=== PATIENT | female | born 1960 | race Caucasian/White ===

== ENCOUNTER 2020-08-11 18:21 | Emergency (ER) | payer SELFPAY ==
[2020-08-11 18:28] VITALS: BP 189/96; PULSE 96; RESP 18; TEMP 36.6; O2SAT 97; BMI 26.1
--- NOTE | 2020-08-11 18:40 | XRR_ITS ---
PROCEDURE INFORMATION: Exam: XR Chest, 1 View Exam date and time: 08/11/2020 7:13 PM Age: 60 years old Clinical indication: Dyspnea; Additional info: Short of breath TECHNIQUE: Imaging protocol: XR of the chest Views: 1 view. COMPARISON: No relevant prior studies available. FINDINGS: Lungs: Unremarkable. No consolidation. Pleural space: Unremarkable. No pleural effusion. No pneumothorax. Heart/Mediastinum: Unremarkable. No cardiomegaly. Bones/joints: Mild levoscoliosis. XR/XR chest 1V portable [id number] IMPRESSION: No acute findings.
--- NOTE | 2020-08-11 18:52 | W.ED.SOB ---
HPI - SOB/Dyspnea General: Chief Complaint: Shortness of Breath/Dyspnea Stated Complaint: sob x few weeks/ easily tired Time Seen by Provider: 08/11/20 18:40 History of Present Illness: HPI Narrative: 60-year-old female comes in today with complaints of some shortness of breath for the last 3 weeks. Patient appears well. Patient appears in no acute distress. Patient reports that shortness of breath occurs with exertion. Patient denies any chest pain or chest discomfort. Patient does report occasional swelling in the lower extremities. Review of Systems General: Reports: 10 or more systems reviewed and unremarkable except in HPI and below Resp: Reports: dyspnea Physical Exam Const: COMMON NORMALS: no acute distress and patient oriented x3 GENERAL APPEARANCE: cooperative HENMT: COMMON NORMALS: normocephalic and Normal external nose present HEAD & SCALP: normal to inspection and normocephalic NOSE: Normal external nose present MOUTH: Normal oral and palatal mucosa present Eye: GENERAL EYE: appearance normal, both eyes and all related structures Neck/C-Spine: COMMON NORMALS: full ROM Lymph: LYMPHATIC: no lymphadenopathy noted Chest: COMMONS NORMALS: normal inspection of the chest Resp: COMMON NORMALS: normal respiratory effort EFFORT & INSPECTION: Yes able to speak in complete sentences Cardio: COMMON NORMALS: regular rate and regular rhythm RATE: regular rate RHYTHM: regular rhythm GI: COMMON NORMALS: non-tender Back/Pelvis: COMMON NORMALS: thoracic and lumbar spine normal to inspection Extremity: COMMON NORMALS: normal to inspection Neuro: COMMON NORMALS: patient oriented x3 and moves all extremities Psych: COMMON NORMALS: mental status grossly normal and cooperative Skin: COMMON NORMALS: no rashes or lesions noted GENERAL SKIN EXAM: no rashes or lesions noted Course Vital Signs: Vital signs: Vital Signs Temperature 97.9 F 08/11/20 18:28 Pulse Rate 84 08/11/20 19:03 Respiratory Rate 17 08/11/20 19:03 Blood Pressure 163/97 08/11/20 19:03 Pulse Oximetry 97 08/11/20 19:03 MDM - SOB/Dyspnea MDM Narrative: Medical decision making narrative: Well-appearing adult female comes in today for concerns of some occasional shortness of breath. Patient is very nonspecific in her symptoms. Patient appears well. Respirations are even lungs are clear to auscultation. Skin is warm and dry color is pink. No edema is noted in the extremities. Heart rates regular. Differential diagnosis includes but not limited to asthma, pulmonary fibrosis, ACS, CHF, pneumonia. Chest x-ray did not show any signs of pneumonia. CBC CMP were unremarkable. BNP and troponin were negative. EKG was normal sinus rhythm. Reviewed exam with patient with recommendations for treatment and follow-up. Recommended follow-up with primary care regarding high blood pressure. Also discussed may be possibility of seeing a vice president safety for further lung evaluation. Patient reported understanding and agreed to plan. Lab Data: Labs: Lab Results 08/11/20 08/11/20 08/11/20 Range/Units 19:24 19:24 19:24 WBC 9.6 (4.0-10.0) 10^3/ uL RBC 4.37 (4.1-5.3) 10^6/u L Hgb 12.7 (11.5-15.3) g/dL Hct 40.0 (37.0-47.0) % MCV 91.5 (81-99) fL MCH 29.1 (28.0-34.0) pg MCHC 31.8 (30.0-36.0) g/dL RDW 14.2 (12.1-15.1) % Plt Count 315 (130-400) 10^3/c mm MPV 10.9 H (7.4-10.4) fL Neut % (Auto) 56.3 % Lymph % (Auto) 29.6 % [place] % (Auto) 8.6 % Eos % (Auto) 4.3 % Baso % (Auto) 0.9 % Neut # (Auto) 5.39 (1.8-7.7) 10^3/u L Lymph # (Auto) 2.8 (0.8-4.8) 10^3/u L [place] # (Auto) 0.8 (0.2-0.9) 10^3/u L Eos # (Auto) 0.4 (0.0-0.8) 10^3/u L Baso # (Auto) 0.1 (0.0-0.1) 10^3/u L Nucleated RBC % (a uto) 0 % Nucleated RBCs # 0.0 /100WBC Sodium 140 (136-145) mmol/L Potassium 4.0 (3.5-5.1) mmol/L Chloride 102 (98-107) mmol/L Carbon Dioxide 29 (22-29) mmol/L Anion Gap 13.0 (5-19) BUN 20 (8-23) mg/dL Creatinine 1.0 H (0.5-0.9) mg/dL GFR Calculation 56.4 L (90-130) mL/min Glucose 107 (65-115) mg/dL Calculated Osmolal ity 293 (285-295) mOsm/k g Calcium 10.1 (8.5-10.5) mg/dL Total Bilirubin 0.3 (0.15-1.2) mg/dL AST 18 (0-32) U/L ALT 18 (0-33) U/L Alkaline Phosphata se 72 (35-105) IU/L Troponin T Baselin e 6 (0-10) ng/L NT-Pro-B Natriuret Pep 53 (0-125) pg/mL Total Protein 7.7 (6.6-8.7) g/dL Albumin 4.7 (3.5-5.2) g/dL Globulin 3.0 (1.3-4.6) g/dL EKG Data^: EKG 1: Attestation: I personally reviewed and interpreted this EKG as follows: (1850, NSR 87bpm regular, no ectopy, no ST elevation.) Discharge Plan Discharge Patient Disposition: Home Clinical Impression: Dyspnea, unspecified Qualifiers: Dyspnea type: shortness of breath Qualified Code(s): R06.02 - Shortness of breath Condition: Stable Discharge Orders: Discharge Order (Routine); Ordered 08/11/20 Ordered By: Cedric Mariano Discharge Diet: Usual diet Discharge Activity: Increase activity as tolerated Activity Restrictions/Additional Instructions: Home and rest. Continue with routine care. Follow-up with primary care for recheck on your blood pressure. You may consider follow-up with pulmonology for further evaluation of your shortness of breath. Coding Level of Care Code ED Supervisor Covering And Lining for Chg Fwd Exam Comprehensive
[2020-08-11 19:03] VITALS: BP 163/97; PULSE 84; RESP 17; O2SAT 97
[2020-08-11 19:40] LABS: Basophils # 0.1 10^3/uL (0.0-0.1); Basophils % 0.9 %; Eosinophils # 0.4 10^3/uL (0.0-0.8); Eosinophils % 4.3 %; Hemoglobin 12.7 g/dL (11.5-15.3); Lymphocytes # 2.8 10^3/uL (0.8-4.8); Lymphocytes % 29.6 %; Mean Corpuscular HGB Conc 31.8 g/dL (30.0-36.0); Mean Corpuscular Hemoglobin 29.1 pg (28.0-34.0); Mean Corpuscular Volume 91.5 fL (81-99); Mean Platelet Volume 10.9 fL (7.4-10.4); Monocytes # 0.8 10^3/uL (0.2-0.9); Monocytes % 8.6 %; Neutrophils # 5.39 10^3/uL (1.8-7.7); Neutrophils % 56.3 %; Nucleated Red Blood Cells % 0 %; Platelet Count 315 10^3/cmm (130-400); Red Blood Count 4.37 10^6/uL (4.1-5.3); Red Cell Distribution Width 14.2 % (12.1-15.1); White Blood Count 9.6 10^3/uL (4.0-10.0)
[2020-08-11 20:01] LABS: Troponin(5th) Baseline 6 ng/L (0-10)
[2020-08-11 20:08] LABS: Alanine Aminotransferase 18 U/L (0-33); Albumin Level 4.7 g/dL (3.5-5.2); Alkaline Phosphatase 72 IU/L (35-105); Aspartate Amino Transferase 18 U/L (0-32); Blood Urea Nitrogen 20 mg/dL (8-23); Calcium 10.1 mg/dL (8.5-10.5); Carbon Dioxide 29 mmol/L (22-29); Chloride 102 mmol/L (98-107); Glomerular Filtration Rate 56.4 mL/min (90-130); Glucose 107 mg/dL (65-115); NT Pro B Type Natriuretic Pept 53 pg/mL (0-125); Osmolality Calculated 293 mOsm/kg (285-295); Sodium 140 mmol/L (136-145); Total Bilirubin 0.3 mg/dL (0.15-1.2); Total Protein 7.7 g/dL (6.6-8.7)
[2020-08-11 20:49] VITALS: BP 152/93; PULSE 83; RESP 17; TEMP 36.6; O2SAT 97
== END 2020-08-11 20:49 | disposition home or self-care (01) ==
PROVIDERS: Emergency Provider Nurse Practitioner Family
DX: R06.02 Shortness of breath (principal)
CPT/HCPCS: 12345; 71045; 80053; 83880; 84484; 85025; 99283

== ENCOUNTER 2020-08-17 09:51 | Observation (INO) | payer SELFPAY ==
[2020-08-17] VITALS (59 sets, daily range): BP systolic 113–163; BP diastolic 64–138; PULSE 71–99; RESP 12–32; TEMP 36.3–36.6; O2SAT 92–98; BMI 28.3
--- NOTE | 2020-08-17 09:53 | XR_ITS ---
WS: [id number] Portable AP upright chest, 08/17/2020 Clinical Data: dyspnea/cough Comparison: Portable chest, 08/11/2020 Findings: No nodules, masses or effusions are seen. The heart is normal. The pulmonary vascularity is not increased. No pneumonia or pneumothorax is seen. The aortic arch and descending aorta show tortu osity. Monitor leads are on the upper abdomen. XR/XR chest 1V portable [id number] Impression: Atherosclerosis.
--- NOTE | 2020-08-17 10:01 | ECG_ITS ---
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 Measurements Intervals [place] Rate: 97 P: 48 [place]: 163 QRS: 37 QRSD: 81 T: 27 QT: 360 QTc: 459 Interpretive Statements SINUS RHYTHM No previous ECG available for comparison Electronically Signed On 08-17-2020 19:57:24 CARPET BINDER by Zuhair Orellana M.D. [id number] f
--- NOTE | 2020-08-17 10:03 | ED_ITS ---
HPI - Arrhythmia/Palpitations General: Chief Complaint: Arrhythmia/Palpitations Stated Complaint: sob/ lightheaded/ dizzy/ near syncopal Time Seen by Provider: 08/17/20 09:52 History of Present Illness: HPI narrative: 60-year-old female brought in by EMS. In the field she had SVT this was captured on the monitor strip. She converted by Valsalva maneuver it was self-induced as they were starting the IV She does admit to drinking a lot of energy drinks lately, additionally this morning she evidently was stressed there was a water leak in the basement of her rental unit and she had a confrontation with the water plant maintenance mechanic. She denies previously having any SVT denies any chest pain just felt weak lightheaded and dizzy with a rapid heart rate she sat down and EMS was called. It resolved now and she is symptom-free at this time. He has no known history of diabetes hypertension or coronary artery disease. MD complaint: rapid heart beat and heart racing Onset (ago): minute(s) Duration: now resolved Severity: severe Context: occurred during exertion Associated symptoms: Reports anxiety, pre-syncope, sense of impending doom and short of breath; Deny cough, diaphoresis, muscle cramps, nausea, paresthesias, syncope or vomiti ng Treatments prior to arrival: vagal maneuvers Review of Systems Const: Denies: diaphoresis ENMT: Denies: throat pain, ear or mastoid pain, nasal discharge or nasal congestion Card: Reports: pre-syncope; Denies: syncope Resp: Denies: dyspnea, productive cough or non-productive cough GI: Denies: nausea or vomiting : Denies: flank pain, difficulty voiding, dysuria, urinary frequency or urinary urgency Musc: Denies: muscle cramps Skin/Breast: Denies: rash or pruritus Psych: Reports: anxiety PFSH ED PFSH: Family History Other Diabetes Hypertension Psychiatric illness Denies family history of CAD (coronary artery disease) Bleeding disorder Family history of premature coronary artery disease Stroke Physical Exam Const: COMMON NORMALS: no acute distress GENERAL APPEARANCE: cooperative and comfortable ORIENTATION/CONSCIOUSNESS: Yes awake, Yes oriented to person, Yes oriented to place and Yes oriented to time HENMT: COMMON NORMALS: normocephalic, atraumatic and hearing grossly normal bilaterally HEAD & SCALP: normocephalic and atraumatic Eye: COMMON NORMALS: Equal, round and reactive pupils present, EOMs intact bilaterally, conjunctivae normal and no scleral icterus CONJUNCTIVA: Yes conjunctivae normal PUPIL: Yes Equal, round and reactive pupils present Neck/C-Spine: COMMON NORMALS: full ROM, no lymphadenopathy, supple and no JVD Lymph: LYMPHATIC: no lymphadenopathy noted and no lymphedema noted Resp: COMMON NORMALS: normal respiratory effort, No retractions, No use of accessory muscles and clear to auscultation bilaterally AUSCULTATION: clear to auscultation bilaterally Cardio: COMMON NORMALS: no JVD, regular rate, regular rhythm and No murmurs present (Cardio) RATE: regular rate RHYTHM: regular rhythm GI: COMMON NORMALS: Soft to palpation and No hepatosplenomegaly present AUSCULTATION: Yes normoactive bowel sounds PALPATION: Yes Soft to palpation, No Tenderness to palpation present (GI), No Guarding due to palpation present (GI) and Yes No hepatosplenomegaly present Extremity: COMMON NORMALS: normal to inspection, capillary refill normal, no clubbing, cyanosis or edema, no calf tenderness and no pedal edema Neuro: SENSORIUM/ORIENTATION: Yes oriented to person, Yes oriented to place and Yes oriented to time Skin: COMMON NORMALS: no rashes or lesions noted GENERAL SKIN EXAM: no rashes or lesions noted Course Vital Signs: Vital signs: Vital Signs Temperature 98.1 F 08/18/20 10:18 Pulse Rate 73 08/18/20 10:18 Respiratory Rate 20 H 08/18/20 10:18 Blood Pressure 116/64 08/18/20 10:18 Pulse Oximetry 96 08/18/20 10:18 MDM - Arrhythmia/Palpitations MDM Narrative: Medical decision making narrative: Patient converted outside of the hospital however opponent is significantly elevated discussed Dr. Cross will admit to cardiology service for further evaluation Lab Data: Labs: Lab Results 08/17/20 08/17/20 08/17/20 Range/Units 10:00 10:00 10:00 WBC 10.8 H (4.0-10.0) 10^3/ uL RBC 4.50 (4.1-5.3) 10^6/u L Hgb 12.8 (11.5-15.3) g/dL Hct 40.4 (37.0-47.0) % MCV 89.8 (81-99) fL MCH 28.4 (28.0-34.0) pg MCHC 31.7 (30.0-36.0) g/dL RDW 14.5 (12.1-15.1) % Plt Count 370 (130-400) 10^3/c mm MPV 11.3 H (7.4-10.4) fL Neut % (Auto) 66.7 % Lymph % (Auto) 22.9 % [place] % (Auto) 6.3 % Eos % (Auto) 3.2 % Baso % (Auto) 0.7 % Neut # (Auto) 7.20 (1.8-7.7) 10^3/u L Lymph # (Auto) 2.5 (0.8-4.8) 10^3/u L [place] # (Auto) 0.7 (0.2-0.9) 10^3/u L Eos # (Auto) 0.4 (0.0-0.8) 10^3/u L Baso # (Auto) 0.1 (0.0-0.1) 10^3/u L Nucleated RBC % (a uto) 0 % Nucleated RBCs # 0.0 /100WBC Sodium 138 (136-145) mmol/L Potassium 3.7 (3.5-5.1) mmol/L Chloride 103 (98-107) mmol/L Carbon Dioxide 18 L (22-29) mmol/L Anion Gap 20.7 H (5-19) BUN 23 (8-23) mg/dL Creatinine 1.2 H (0.5-0.9) mg/dL GFR Calculation 45.7 L (90-130) mL/min Glucose 216 H (65-115) mg/dL Estimat Average Gl ucose Hemoglobin A1c (4.0-6.0) % Calculated Osmolal ity 296 H (285-295) mOsm/k g Calcium 9.5 (8.5-10.5) mg/dL Total Bilirubin 0.2 (0.15-1.2) mg/dL AST 28 (0-32) U/L ALT 29 (0-33) U/L Alkaline Phosphata se 72 (35-105) IU/L Troponin T Baselin e 17 H (0-10) ng/L Troponin T 120 Min [place] (0-10) ng/L Delta Troponin T (0-10) ABS# Total Protein 7.4 (6.6-8.7) g/dL Albumin 4.4 (3.5-5.2) g/dL Globulin 3.0 (1.3-4.6) g/dL Triglycerides (0-150) mg/dL Cholesterol (0-200) mg/dL LDL Cholesterol, C alc (50-129) mg/dL HDL Cholesterol (60-100) mg/dL LDL/HDL Ratio (0.00-3.22) RATI O Cholesterol/HDL Ra karey (0.0-4.40) mg/dL TSH 1.84 (0.27-4.20) uIU/ mL Free T4 1.16 (0.82-1.77) ng/d L 08/17/20 08/17/20 08/17/20 Range/Units 10:00 10:00 12:17 WBC (4.0-10.0) 10^3/ uL RBC (4.1-5.3) 10^6/u L Hgb (11.5-15.3) g/dL Hct (37.0-47.0) % MCV (81-99) fL MCH (28.0-34.0) pg MCHC (30.0-36.0) g/dL RDW (12.1-15.1) % Plt Count (130-400) 10^3/c mm MPV (7.4-10.4) fL Neut % (Auto) % Lymph % (Auto) % [place] % (Auto) % Eos % (Auto) % Baso % (Auto) % Neut # (Auto) (1.8-7.7) 10^3/u L Lymph # (Auto) (0.8-4.8) 10^3/u L [place] # (Auto) (0.2-0.9) 10^3/u L Eos # (Auto) (0.0-0.8) 10^3/u L Baso # (Auto) (0.0-0.1) 10^3/u L Nucleated RBC % (a uto) % Nucleated RBCs # /100WBC Sodium (136-145) mmol/L Potassium (3.5-5.1) mmol/L Chloride (98-107) mmol/L Carbon Dioxide (22-29) mmol/L Anion Gap (5-19) BUN (8-23) mg/dL Creatinine (0.5-0.9) mg/dL GFR Calculation (90-130) mL/min Glucose (65-115) mg/dL Estimat Average Gl ucose 114 Hemoglobin A1c 5.6 (4.0-6.0) % Calculated Osmolal ity (285-295) mOsm/k g Calcium (8.5-10.5) mg/dL Total Bilirubin (0.15-1.2) mg/dL AST (0-32) U/L ALT (0-33) U/L Alkaline Phosphata se (35-105) IU/L Troponin T Baselin e (0-10) ng/L Troponin T 120 Min [place] 49.68 H (0-10) ng/L Delta Troponin T 32.68 H* (0-10) ABS# Total Protein (6.6-8.7) g/dL Albumin (3.5-5.2) g/dL Globulin (1.3-4.6) g/dL Triglycerides 150 (0-150) mg/dL Cholesterol 218 H (0-200) mg/dL LDL Cholesterol, C alc 97 (50-129) mg/dL HDL Cholesterol 91 (60-100) mg/dL LDL/HDL Ratio 1.07 (0.00-3.22) RATI O Cholesterol/HDL Ra karey 2.40 (0.0-4.40) mg/dL TSH (0.27-4.20) uIU/ mL Free T4 (0.82-1.77) ng/d L Discharge Plan Discharge Patient Disposition: Admitted As Inpatient Admit Provider: Cliff Cross Clinical Impression: Supraventricular tachycardia, Elevated troponin, Exertional dyspnea Condition: Stable Coding Level of Care Code ED Stamping Machine Operator for Sarita Holman
[2020-08-17 10:23] LABS: Basophils # 0.1 10^3/uL (0.0-0.1); Basophils % 0.7 %; Eosinophils # 0.4 10^3/uL (0.0-0.8); Eosinophils % 3.2 %; Hematocrit 40.4 % (37.0-47.0); Hemoglobin 12.8 g/dL (11.5-15.3); Lymphocytes # 2.5 10^3/uL (0.8-4.8); Lymphocytes % 22.9 %; Mean Corpuscular HGB Conc 31.7 g/dL (30.0-36.0); Mean Corpuscular Hemoglobin 28.4 pg (28.0-34.0); Mean Corpuscular Volume 89.8 fL (81-99); Mean Platelet Volume 11.3 fL (7.4-10.4); Monocytes # 0.7 10^3/uL (0.2-0.9); Monocytes % 6.3 %; Neutrophils % 66.7 %; Nucleated Red Blood Cells % 0 %; Platelet Count 370 10^3/cmm (130-400); Red Cell Distribution Width 14.5 % (12.1-15.1); White Blood Count 10.8 10^3/uL (4.0-10.0)
[2020-08-17 10:47] LABS: Troponin(5th) Baseline 17 ng/L (0-10)
[2020-08-17 10:55] LABS: Alanine Aminotransferase 29 U/L (0-33); Albumin Level 4.4 g/dL (3.5-5.2); Alkaline Phosphatase 72 IU/L (35-105); Anion Gap 20.7 (5-19); Aspartate Amino Transferase 28 U/L (0-32); Blood Urea Nitrogen 23 mg/dL (8-23); Calcium 9.5 mg/dL (8.5-10.5); Carbon Dioxide 18 mmol/L (22-29); Chloride 103 mmol/L (98-107); Glomerular Filtration Rate 45.7 mL/min (90-130); Glucose 216 mg/dL (65-115); Osmolality Calculated 296 mOsm/kg (285-295); Potassium 3.7 mmol/L (3.5-5.1); Sodium 138 mmol/L (136-145); Thyroid Stimulating Hormone 1.84 uIU/mL (0.27-4.20); Total Bilirubin 0.2 mg/dL (0.15-1.2); Total Protein 7.4 g/dL (6.6-8.7)
[2020-08-17] MEDS: metoprolol succinate ER (24 HR) 25 mg Tablet 12.5 MG PO (11:49)
--- NOTE | 2020-08-17 12:01 | ECG_ITS ---
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 Measurements Intervals [place] Rate: 82 P: 43 [place]: 168 QRS: 46 QRSD: 82 T: 28 QT: 373 QTc: 436 Interpretive Statements SINUS RHYTHM No previous ECG available for comparison Electronically Signed On 08-17-2020 20:17:29 STOCK SAW OPERATOR by Zuhair Orellana M.D. [id number]
[2020-08-17 13:12] LABS: Free T4 Free Thyroxine 1.16 ng/dL (0.82-1.77)
[2020-08-17 13:16] LABS: Troponin 5 2HR 49.68 ng/L (0-10)
[2020-08-17 13:34] LABS: Troponin 5 2HR Delta 32.68 ABS# (0-10)
[2020-08-17] MEDS: enoxaparin 80 mg/0.8 mL Syringe 70 MG SUBCUT (14:12)
[2020-08-17] MEDS: nitroglycerin 1 gm/inch oint Pkt 0.5 INCH TOPICAL (14:13)
--- NOTE | 2020-08-17 16:01 | ECG_ITS ---
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 Measurements Intervals [place] Rate: 80 P: 9 [place]: 163 QRS: 41 QRSD: 75 T: 28 QT: 378 QTc: 438 Interpretive Statements SINUS RHYTHM Compared to ECG 08/17/2020 13:34:13 No significant changes Electronically Signed On 08-17-2020 20:17:09 NUT TIGHTENER by Zuhair Orellana M.D. [id number]
[2020-08-17 16:08] LABS: Troponin 5 6HR 50.36 ng/L (0-10)
[2020-08-17 16:10] LABS: Troponin 5 6HR Delta 33.36 ng/L (0-12)
--- NOTE | 2020-08-17 16:25 | USCV_ITS ---
Mile Alonzo Age: 60 Gender: F : 1960 Exam Date: 08/17/2020 16:27 Ordering Phys: Jimbo De Los Santos DO Technologist: Erin Mobley Exam Location: [facility] [place] Indication: ELEVATED TROP BP: 98 / 60 HR: 79 Rhythm: Sinus Technical Quality: Fair MEASUREMENTS (Male / Female) Normal Values 2D ECHO LV Diastolic Diameter PLAX 4.3 cm 4.2 - 5.9 / 3.9 - 5.3 cm LV Systolic Diameter PLAX 3.0 cm LV Chamber Size 2.7 cm IVS Diastolic Thickness 0.9 cm 0.6 - 1.0 / 0.6 - 0.9 cm IVS Systolic Thickness 1.5 cm LVPW Diastolic Thickness 1.1 cm 0.6 - 1.0 / 0.6 - 0.9 cm LVPW Systolic Thickness 1.0 cm RV Chamber Size 2.6 cm LVOT Diameter 2.0 cm LV Ejection Fraction 2D Teich 58.4 % LV Ejection Fraction MOD 2C 60.2 % LV Ejection Fraction 2C AL 61.8 % LA Diameter 2.5 cm LA Width 2.9 cm LA Height 4.2 cm RA Width 3.4 cm RA Height 3.6 cm Aorta at Sinotubular Diameter 3.0 cm M-MODE LV Diastolic Diameter MM 3.9 cm 4.2 - 5.9 / 3.9 - 5.3 cm LV Systolic Diameter MM 2.6 cm LV Ejection Fraction MM Teich 63.9 % IVS Diastolic Thickness MM 0.9 cm 0.6 - 1.0 / 0.6 - 0.9 cm IVS Systolic Thickness MM 1.3 cm LVPW Diastolic Thickness MM 1.3 cm 0.6 - 1.0 / 0.6 - 0.9 cm LVPW Systolic Thickness MM 1.6 cm RV Diastolic Diameter MM 1.3 cm Aortic Annulus Diameter 3.0 cm LA Ao Ratio MM 0.8 MV E Point Septal Separation 0.3 cm DOPPLER AV Peak Velocity 129.0 cm/s LVOT Peak Velocity 94.0 cm/s AV Area Cont Eq vti 2.5 cm squared AV Area Cont Eq pk 2.3 cm squared MV Area PHT 3.1 cm squared Mitral E to A Ratio 1.3 MV E' Velocity 80.0 cm/s TR Peak Velocity 247.3 cm/s TR Peak Gradient 24.5 mmHg TR Mean Velocity 175.1 cm/s TR Mean Gradient 14.3 mmHg TR Velocity Time Integral 69.7 cm TV Peak E Velocity 56.0 cm/s Right Atrial Pressure 3.0 mmHg Pulmonary Artery Systolic Pressu 27.5 mmHg PV Peak Velocity 68.0 cm/s RV Acceleration Time 0.1 s RV Ejection Time 0.4 s RV AcT/ET 0.4 FINDINGS Left Ventricle Normal left ventricular size and systolic function, EF 61 %. No regional wall motion abnormalities. Right Ventricle The right ventricle is normal in size and function. Right Atrium The right atrium is normal in size. Left Atrium The left atrium is normal in size. Mitral Valve Structurally normal mitral valve without significant stenosis or prolapse. There is no mitral regurgitation. Aortic Valve Structurally normal aortic valve without significant sclerosis or stenosis. There is no aortic regurgitation. Tricuspid Valve Structurally normal tricuspid valve without significant stenosis or regurgitation. Pulmonary artery systolic pressure is normal. Pulmonic Valve No gross abnormalities noted Pericardium Normal pericardium without effusion. Aorta Normal ascending aorta dimension. CONCLUSIONS Normal left ventricular size and systolic function, EF 61 %. No regional wall motion abnormalities. Normal cardiac chamber sizes. No significant valve abnormalities. There is no pericardial effusion. There are no intracardiac masses. There are no prior echocardiogram studies to compare. Dr Cliff Cross MD FACC (Electronically Signed) Final Date: 17 August 2020 18:01 S
--- NOTE | 2020-08-17 16:30 | PC.NURSE ---
From ER A, Ox4. Denies any pain or SOB or dizziness. Oriented pt to staff. call light within reach.
[2020-08-17] MEDS: sodium chloride 0.9% 1,000 ML 100 ML IV (17:19)
[2020-08-17] MEDS: acetaminophen 325 mg Tablet 650 MG PO (17:44)
[2020-08-17 17:47] LABS: Estmated Average Glucose 114; Hemoglobin A1C 5.6 % (4.0-6.0)
[2020-08-17] MEDS: ondansetron 2 mg/ML SDV 2 mL 4 MG IVP (17:56)
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
[2020-08-17 20:29] LABS: Cholesterol 218 mg/dL (0-200); HDL Cholesterol 91 mg/dL (60-100); LDL Cholesterol Calculated 97 mg/dL (50-129); LDL HDL Ratio 1.07 RATIO (0.00-3.22); Triglycerides 150 mg/dL (0-150)
[2020-08-17] MEDS: aspirin 81 mg EC Tablet 162 MG PO (20:29)
[2020-08-17] MEDS: metoprolol tartrate 25 mg Tablet 12.5 MG PO (20:29)
[2020-08-18] VITALS: BP 102/58; PULSE 78; RESP 15; TEMP 36.6; O2SAT 93
[2020-08-18] MEDS: sodium chloride 0.9% 1,000 ML 100 ML IV (03:01)
[2020-08-18 03:25] VITALS: BP 116/60; PULSE 70; RESP 17; TEMP 36.7; O2SAT 94
[2020-08-18 04:56] LABS: Basophils # 0.1 10^3/uL (0.0-0.1); Basophils % 0.8 %; Eosinophils # 0.4 10^3/uL (0.0-0.8); Eosinophils % 5.6 %; Hemoglobin 11.7 g/dL (11.5-15.3); Lymphocytes # 2.2 10^3/uL (0.8-4.8); Lymphocytes % 29.7 %; Mean Corpuscular HGB Conc 30.8 g/dL (30.0-36.0); Mean Corpuscular Volume 94.1 fL (81-99); Mean Platelet Volume 10.7 fL (7.4-10.4); Monocytes # 0.7 10^3/uL (0.2-0.9); Monocytes % 10.1 %; Neutrophils # 3.94 10^3/uL (1.8-7.7); Neutrophils % 53.5 %; Nucleated Red Blood Cells % 0 %; Platelet Count 279 10^3/cmm (130-400); Red Blood Count 4.04 10^6/uL (4.1-5.3); Red Cell Distribution Width 14.9 % (12.1-15.1); White Blood Count 7.4 10^3/uL (4.0-10.0)
--- NOTE | 2020-08-18 05:33 | PC.NURSE ---
PT RESTING IN BED. PT DENIES PAIN. WILL CONTINUE TO MONITOR.
[2020-08-18 05:48] LABS: Alanine Aminotransferase 23 U/L (0-33); Albumin Level 3.8 g/dL (3.5-5.2); Alkaline Phosphatase 55 IU/L (35-105); Aspartate Amino Transferase 24 U/L (0-32); Blood Urea Nitrogen 18 mg/dL (8-23); Calcium 8.6 mg/dL (8.5-10.5); Carbon Dioxide 21 mmol/L (22-29); Chloride 110 mmol/L (98-107); Globulin 2.6 g/dL (1.3-4.6); Glomerular Filtration Rate 63.7 mL/min (90-130); Glucose 124 mg/dL (65-115); Osmolality Calculated 295 mOsm/kg (285-295); Sodium 141 mmol/L (136-145); Total Bilirubin 0.3 mg/dL (0.15-1.2); Total Protein 6.4 g/dL (6.6-8.7)
[2020-08-18 08:00] VITALS: BP 131/75; PULSE 81; RESP 24; TEMP 36.9; O2SAT 96
[2020-08-18] MEDS: aspirin 81 mg EC Tablet 162 MG PO (09:01)
[2020-08-18] MEDS: famotidine 20 mg Tablet PO (09:02)
[2020-08-18] MEDS: metoprolol tartrate 25 mg Tablet 12.5 MG PO ×2 (09:02→09:26)
--- NOTE | 2020-08-18 09:15 | PM.DCS ---
Discharge Providers Date of Admission: 08/17/20 15:04 Date of Discharge: August 18, 2020 Attending Provider at Admission: Cliff Cross MD Attending Provider at Discharge: Cliff Cross MD Diagnoses at Discharge Discharge Diagnosis (1) Elevated troponin: Status: Acute Permanent problem details: Patient had a 6-hour delta of 33.36. However she did not have any significant chest pain. (2) Supraventricular tachycardia: Status: Acute Permanent problem details: Patient was found to have a heart rate in the 170s by the EMS. She is spontaneously converted. I did not have any rhythm strip to evaluate the arrhythmia. (3) Exertional dyspnea: Status: Acute Permanent problem details: Patient has been complaining of shortness of breath with activities for the last more than a month. Etiology is not clear. Coronary ischemia is a consideration. Reason for Visit Reason for Visit: sob/ lightheaded/ dizzy/ near syncopal Hospital Course Hospital Course Patient was started on IV heparin because of the elevated troponin T, arrhythmia and elevated creatinine. She has not had any recurrence of arrhythmia or any chest pain during the hospital stay. Her repeat creatinine was 0.9. She remained stable throughout the hospital course. Her echocardiogram was unremarkable. Her EKG did not reveal any ischemic changes. Because of her shortness of breath and the elevated troponin T, possibility of coronary ischemia causing these was considered. For further evaluation of her coronary status, an outpatient exercise/sestamibi/sestamibi stress test was thought to be appropriate. Since he is remaining stable with no recurrence of arrhythmia or any other specific symptoms, it was thought to be appropriate to discharge home today. Patient advised to call us back or come back to the hospital with a recurrence of any palpitation or any new symptoms. Physical Exam Narrative: EXAM NARRATIVE: GENERAL: The patient is alert and oriented times three. Not in any acute distress. HEENT: No significant pallor, icterus or lymphadenopathy.Oral cavity: There are no mucous membrane lesions. NECK: Trachea appears to be central. No masses noted. No JVD or thyromegaly appreciated. RESPIRATORY: Chest is symmetrical. No intercostals muscle retraction or any accessory muscle activation. There is no chest wall tenderness. Breath sounds are heard bilaterally. No rales or rhonchi heard. No evidence of any consolidation. BREASTS: Deferred. HEART: The heart sounds are normal. No S3 or S4. No significant murmurs. No pericardial rub ABDOMEN: No vessel pulsations or distention. No tenderness. No organomegaly appreciated. Bowel sounds are normally heard. : Deferred. RECTAL: Deferred. LYMPHATIC: No lymphadenopathy noted in the neck or groin. EXTREMITIES: No edema or cyanosis. No clubbing. Peripheral pulses are palpated in fairly good volume and amplitude MUSCULOSKELETAL: No acute joint deformities or swelling SKIN: There are no significant rashes or ecchymosis NEUROPSYCHIATRIC: The patient is alert and oriented x3. Appears to be in a good mood. No tremors or rigidity noted. Discharge Data Data Completed and Pending: Completed Studies During Hospitalization Category Date Time Status XR chest 1V luis ble [id number] Stat Exams 08/17/20 09:53 Completed CV echo complete* [id number] Urgent Ultrasound 08/17/20 16:25 Completed Labs from last 24 hours 08/18/20 08/18/20 08/17/20 04:38 04:38 15:44 WBC 7.4 RBC 4.04 L Hgb 11.7 Hct 38.0 MCV 94.1 MCH 29.0 MCHC 30.8 RDW 14.9 Plt Count 279 MPV 10.7 H Neut % (Auto) 53.5 Lymph % (Auto) 29.7 [place] % (Auto) 10.1 Eos % (Auto) 5.6 Baso % (Auto) 0.8 Neut # (Auto) 3.94 Lymph # (Auto) 2.2 [place] # (Auto) 0.7 Eos # (Auto) 0.4 Baso # (Auto) 0.1 Nucleated RBC % (a uto) 0 Nucleated RBCs # 0.0 Sodium 141 Potassium 4.0 Chloride 110 H Carbon Dioxide 21 L Anion Gap 14.0 BUN 18 Creatinine 0.9 GFR Calculation 63.7 L Glucose 124 H Estimat Average Gl ucose Hemoglobin A1c Calculated Osmolal ity 295 Calcium 8.6 Total Bilirubin 0.3 AST 24 ALT 23 Alkaline Phosphata se 55 Troponin T Baselin e Troponin T 120 Min [place] Delta Troponin T Troponin T Hi Sens 6Hr 50.36 H Troponin T Hi Sens 6Hr Delta 33.36 H* Total Protein 6.4 L Albumin 3.8 Globulin 2.6 Triglycerides Cholesterol LDL Cholesterol, C alc HDL Cholesterol LDL/HDL Ratio Cholesterol/HDL Ra karey TSH Free T4 08/17/20 08/17/20 08/17/20 12:17 10:00 10:00 WBC RBC Hgb Hct MCV MCH MCHC RDW Plt Count MPV Neut % (Auto) Lymph % (Auto) [place] % (Auto) Eos % (Auto) Baso % (Auto) Neut # (Auto) Lymph # (Auto) [place] # (Auto) Eos # (Auto) Baso # (Auto) Nucleated RBC % (a uto) Nucleated RBCs # Sodium Potassium Chloride Carbon Dioxide Anion Gap BUN Creatinine GFR Calculation Glucose Estimat Average Gl ucose 114 Hemoglobin A1c 5.6 Calculated Osmolal ity Calcium Total Bilirubin AST ALT Alkaline Phosphata se Troponin T Baselin e Troponin T 120 Min [place] 49.68 H Delta Troponin T 32.68 H* Troponin T Hi Sens 6Hr Troponin T Hi Sens 6Hr Delta Total Protein Albumin Globulin Triglycerides 150 Cholesterol 218 H LDL Cholesterol, C alc 97 HDL Cholesterol 91 LDL/HDL Ratio 1.07 Cholesterol/HDL Ra karey 2.40 TSH Free T4 08/17/20 08/17/20 08/17/20 10:00 10:00 10:00 WBC 10.8 H RBC 4.50 Hgb 12.8 Hct 40.4 MCV 89.8 MCH 28.4 MCHC 31.7 RDW 14.5 Plt Count 370 MPV 11.3 H Neut % (Auto) 66.7 Lymph % (Auto) 22.9 [place] % (Auto) 6.3 Eos % (Auto) 3.2 Baso % (Auto) 0.7 Neut # (Auto) 7.20 Lymph # (Auto) 2.5 [place] # (Auto) 0.7 Eos # (Auto) 0.4 Baso # (Auto) 0.1 Nucleated RBC % (a uto) 0 Nucleated RBCs # 0.0 Sodium 138 Potassium 3.7 Chloride 103 Carbon Dioxide 18 L Anion Gap 20.7 H BUN 23 Creatinine 1.2 H GFR Calculation 45.7 L Glucose 216 H Estimat Average Gl ucose Hemoglobin A1c Calculated Osmolal ity 296 H Calcium 9.5 Total Bilirubin 0.2 AST 28 ALT 29 Alkaline Phosphata se 72 Troponin T Baselin e 17 H Troponin T 120 Min [place] Delta Troponin T Troponin T Hi Sens 6Hr Troponin T Hi Sens 6Hr Delta Total Protein 7.4 Albumin 4.4 Globulin 3.0 Triglycerides Cholesterol LDL Cholesterol, C alc HDL Cholesterol LDL/HDL Ratio Cholesterol/HDL Ra karey TSH 1.84 Free T4 1.16 Echocardiogram on August 17, 2020 Normal left ventricular size and systolic function, EF 61 %. No regional wall motion abnormalities. Normal cardiac chamber sizes. No significant valve abnormalities. There is no pericardial effusion. There are no intracardiac masses. There are no prior echocardiogram studies to compare. Vitals: Last Vital Signs Temp 98.4 F 08/18/20 08:00 Pulse 81 08/18/20 08:00 Resp 24 H 08/18/20 08:00 BP 131/75 08/18/20 08:00 Pulse Ox 96 08/18/20 08:00 Discharge Plan Discharge Patient Disposition: Home Condition: Stable Prescriptions: New atorvastatin 40 mg Tablet 40 mg PO BEDTIME 30 Days Qty: 30 RF: 3 aspirin 81 mg Tablet,Delayed Release (Dr/Ec) 162 mg PO DAILY 30 Days Qty: 30 RF: 3 metoprolol tartrate 25 mg tablet 25 mg PO BID 30 Days Qty: 60 RF: 3 Continued multivitamin Tablet 1 tab PO DAILY RF: 0 Vitamin B-12 1,000 mcg Tablet 3,000 mcg PO DAILY RF: 0 Discharge Orders: Discharge Order (Routine); Ordered 08/18/20 Ordered By: Cliff Cross Other Ambulatory Orders: Sestamibi Stress Test Request (Routine) Timeframe: 1 Week Facility: [facility] - Location: Cardiac Diagnostic Laboratory Ordered By: Cliff Cross Discharge Diet: Advance as tolerated Discharge Activity: Resume usual activity Activity Restrictions/Additional Instructions: The patient is advised to avoid any strenuous activities. Continue taking the medications as prescribed. Will be scheduled for an exercise/sestamibi/sestamibi stress test as an outpatient. Please make an appointment to be seen in the office by me in 3 weeks Discharge Attestations Time Spent in Discharge Care*: less than 30 min Specific Discharge Activities: educating patient Quality Metrics Clinical Quality Measures During this hospital stay, did patient experience: None Coding Level of Care Code Acute Telephone Instrument Supervisor for Sarita Fwfreddie History Detailed Exam Detailed Medical Decision Making Moderate Complexity Diagnoses Elevated troponin R77.8 Supraventricular tachycardia I47.1 Exertional dyspnea R06.00
[2020-08-18] MEDS: atorvastatin 40 mg Tablet PO (09:27)
[2020-08-18 10:18] VITALS: BP 116/64; PULSE 73; RESP 20; TEMP 36.7; O2SAT 96
--- NOTE | 2020-08-18 11:02 | PC.NURSE ---
Received Orders from DR Cross to discharge patient if patient is able to ambulate well. Nurse walked with patent in the unit. Approximately 200 ft. Patient tolerated well and was asymptomatic.
--- NOTE | 2020-08-18 11:03 | PC.NURSE ---
Nurse started discharge process. Assessment completed, all vitals WNL. Reviewed discharge instruction and medication with the patient. Discontinued IV.
== END 2020-08-18 11:05 | disposition home or self-care (01) ==
LOC: ER 11:30 → CSU 15:30
PROVIDERS: Admitting Provider Internal Medicine Cardiovascular Disease; Emergency Provider Family Medicine; Visit Provider Internal Medicine Cardiovascular Disease
DX: I47.1 Supraventricular tachycardia (principal); R06.00 Dyspnea, unspecified; R77.8 Other specified abnormalities of plasma proteins
CPT/HCPCS: 12345; 36415; 71045; 80053; 80061; 83036; 84439; 84443; 84484; 85025; 93005; 93306; 96372; 96375; 99283; 99285; G0378; J1650; J2405; J7030

== ENCOUNTER 2020-11-16 15:40 | Emergency (ER) | payer SELFPAY ==
[2020-11-16 15:50] VITALS: BP 125/88; PULSE 94; RESP 16; O2SAT 96; BMI 25.7
[2020-11-16 18:06] VITALS: BP 153/71; PULSE 77; RESP 18; O2SAT 96
[2020-11-16 18:07] VITALS: O2SAT 96
--- NOTE | 2020-11-16 18:17 | ECG_ITS ---
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 Measurements Intervals Cooks Rate: 94 P: 44 LA: 151 QRS: 23 QRSD: 87 T: 47 QT: 348 QTc: 436 Interpretive Statements SINUS RHYTHM Compared to ECG 08/17/2020 16:37:49 No significant changes Electronically Signed On 11-17-2020 19:18:43 PROOF MACHINE OPERATOR SUPERVISOR by Cliff Cross M.D. [id number]
--- NOTE | 2020-11-16 18:17 | XRR_ITS ---
PROCEDURE INFORMATION: Exam: XR Chest, 1 View Exam date and time: 11/16/2020 6:23 PM Age: 60 years old Clinical indication: Other: Tachycardia; Additional info: Cp TECHNIQUE: Imaging protocol: XR of the chest Views: 1 view. COMPARISON: CR XR chest 1V portable [id number] 08/17/2020 10:17 AM FINDINGS: Lungs: Unremarkable. No consolidation. Pleural spaces: Unremarkable. No pleural effusion. No pneumothorax. Heart/Mediastinum: Unremarkable. No cardiomegaly. Bones/joints: Unremarkable. XR/XR chest 1V portable [id number] IMPRESSION: No acute findings.
[2020-11-16] MEDS: ondansetron 2 mg/ML SDV 2 mL 4 MG IVP (18:31)
--- NOTE | 2020-11-16 18:55 | ED_ITS ---
HPI - Chest Pain General: Chief Complaint: Chest Pain Stated Complaint: Nausea/Rapid Heart Rate Time Seen by Provider: 11/16/20 18:07 Source: patient Mode of arrival: ambulatory Limitations: no limitations History of Present Illness: HPI narrative: Mile is a 60-year-old female who states that today she is having some palpitations along with some right arm pain. She denies any worsening or improving factors. She states she is to take metoprolol at home but has not. She denies any worsening improving factors. She denies any vomiting or diarrhea. She denies any pain currently and feels improved currently. Associated symptoms: Deny abdominal pain, dyspnea, fever(s), nausea or vomiting Review of Systems Const: Denies: fever(s), chills, body aches or change in appetite Eyes: Denies: blurry vision or eye discomfort ENMT: Denies: throat pain or dental pain Card: Denies: chest pain Resp: Denies: dyspnea GI: Denies: abdominal pain, nausea, vomiting or diarrhea : Denies: dysuria Musc: Denies: neck pain or back pain Skin/Breast: Denies: rash Neuro: Denies: headache(s) Psych: Denies: depression Nick/Lymph: Denies: easy bruising All/Imm: Denies: urticaria PFSH ED PFSH: Family History Other Diabetes Hypertension Psychiatric illness Denies family history of CAD (coronary artery disease) Bleeding disorder Family history of premature coronary artery disease Stroke Physical Exam Const: COMMON NORMALS: no acute distress, patient oriented x3 and healthy appearing HENMT: COMMON NORMALS: normocephalic and atraumatic HEAD & SCALP: normocephalic and atraumatic Eye: COMMON NORMALS: Equal, round and reactive pupils present and EOMs intact bilaterally PUPIL: Yes Equal, round and reactive pupils present Neck/C-Spine: COMMON NORMALS: full ROM and supple Chest: COMMONS NORMALS: normal inspection of the chest and normal palpation of entire chest wall Resp: COMMON NORMALS: normal respiratory effort, No retractions, No use of accessory muscles and clear to auscultation bilaterally AUSCULTATION: clear to auscultation bilaterally Cardio: COMMON NORMALS: regular rate, regular rhythm and No murmurs present (Cardio) RATE: regular rate RHYTHM: regular rhythm GI: COMMON NORMALS: Normal to inspection, nondistended, normoactive bowel sounds present, Soft to palpation, non-tender and no masses PALPATION: Yes Soft to palpation Extremity: COMMON NORMALS: normal to inspection and full ROM Neuro: COMMON NORMALS: patient oriented x3, moves all extremities and no focal motor deficits Psych: COMMON NORMALS: mental status grossly normal, Normal thought process present and cooperative THOUGHT PROCESS: Normal thought process present Skin: COMMON NORMALS: no rashes or lesions noted and no wounds GENERAL SKIN EXAM: no rashes or lesions noted Course Vital Signs: Vital signs: Vital Signs Pulse Rate 83 11/16/20 20:02 Respiratory Rate 22 H 11/16/20 20:02 Blood Pressure 141/88 11/16/20 20:02 Pulse Oximetry 94 11/16/20 20:02 MDM - Chest Pain MDM Narrative: Medical decision making narrative: Patient presents for chest pain that is atypical in nature. She has been pain-free here but was hypertensive. She states she has not been taking her metoprolol believe these could be causing her symptoms as well. Her troponin and blood work are all normal. EKG and x-ray are normal. She has no signs of acute coronary syndrome. She has no signs of pulmonary embolism or aortic dissection. Will prescribe her metoprolol and she is to follow-up with PCP in 2 to 4 days return to ER if she has any return of that pain. She understands and agrees to the plan. Lab Data: Labs: Lab Results 11/16/20 11/16/20 11/16/20 Range/Units 18:00 18:00 18:00 WBC 9.0 (4.0-10.0) 10^3/ uL RBC 4.35 (4.1-5.3) 10^6/u L Hgb 12.6 (11.5-15.3) g/dL Hct 38.5 (37.0-47.0) % MCV 88.5 (81-99) fL MCH 29.0 (28.0-34.0) pg MCHC 32.7 (30.0-36.0) g/dL RDW 13.9 (12.1-15.1) % Plt Count 319 (130-400) 10^3/c mm MPV 11.4 H (7.4-10.4) fL Neut % (Auto) 59.4 % Lymph % (Auto) 26.6 % [place] % (Auto) 8.7 % Eos % (Auto) 4.1 % Baso % (Auto) 1.0 % Neut # (Auto) 5.31 (1.8-7.7) 10^3/u L Lymph # (Auto) 2.4 (0.8-4.8) 10^3/u L [place] # (Auto) 0.8 (0.2-0.9) 10^3/u L Eos # (Auto) 0.4 (0.0-0.8) 10^3/u L Baso # (Auto) 0.1 (0.0-0.1) 10^3/u L Nucleated RBC % (a uto) 0 % Nucleated RBCs # 0.0 /100WBC Sodium 138 (136-145) mmol/L Potassium 4.4 (3.5-5.1) mmol/L Chloride 100 (98-107) mmol/L Carbon Dioxide 27 (22-29) mmol/L Anion Gap 15.4 (5-19) BUN 22 (8-23) mg/dL Creatinine 1.1 H (0.5-0.9) mg/dL GFR Calculation 50.5 L (90-130) mL/min Glucose 87 (65-115) mg/dL Calculated Osmolal ity 289 (285-295) mOsm/k g Calcium 9.5 (8.5-10.5) mg/dL Total Bilirubin 0.2 (0.15-1.2) mg/dL AST 18 (0-32) U/L ALT 19 (0-33) U/L Alkaline Phosphata se 70 (35-105) IU/L Troponin T Baselin e 6 (0-10) ng/L Total Protein 7.8 (6.6-8.7) g/dL Albumin 4.4 (3.5-5.2) g/dL Globulin 3.4 (1.3-4.6) g/dL Imaging Data^: CXR: Attestation: I personally reviewed and interpreted this imaging study as follows: My impression: No acute normality EKG Data^: EKG 1: Attestation: I personally reviewed and interpreted this EKG as follows: EKG interpretation date: 11/16/20 EKG interpretation time: 15:48 Interpretation: nsr hr [address] or t wave abnormalities qrs 87 qtc 400 Discharge Plan Discharge Patient Disposition: Home Clinical Impression: Atypical chest pain Condition: Stable Prescriptions: Changed metoprolol tartrate 25 mg tablet 25 mg PO BID@629,1999 Qty: 30 RF: 0 No Action ginseng 1 tab PO DAILY@0630 RF: 0 atorvastatin 40 mg tablet 40 mg PO BEDTIME@1999 RF: 0 aspirin 81 mg tablet,delayed release (DR/EC) 162 mg PO DAILY@0630 RF: 0 multivitamin Tablet 1 tab PO DAILY@0630 RF: 0 cyanocobalamin (vitamin B-12) [Vitamin B-12] 1,000 mcg Tablet 3,000 mcg PO DAILY@0630 RF: 0 Discharge Orders: Discharge ED (Routine); Ordered 11/16/20 Ordered By: Magdalena Hayden Discharge Diet: Advance as tolerated Discharge Activity: Resume usual activity Patient Instructions: Chest Pain (ED) Coding Level of Care Code ED Electrical Design Engineer for Yoshig Fwd Exam Comprehensive
[2020-11-16 19:00] LABS: Basophils # 0.1 10^3/uL (0.0-0.1); Eosinophils # 0.4 10^3/uL (0.0-0.8); Eosinophils % 4.1 %; Hematocrit 38.5 % (37.0-47.0); Hemoglobin 12.6 g/dL (11.5-15.3); Lymphocytes # 2.4 10^3/uL (0.8-4.8); Lymphocytes % 26.6 %; Mean Corpuscular HGB Conc 32.7 g/dL (30.0-36.0); Mean Corpuscular Volume 88.5 fL (81-99); Mean Platelet Volume 11.4 fL (7.4-10.4); Monocytes # 0.8 10^3/uL (0.2-0.9); Monocytes % 8.7 %; Neutrophils # 5.31 10^3/uL (1.8-7.7); Neutrophils % 59.4 %; Nucleated Red Blood Cells % 0 %; Platelet Count 319 10^3/cmm (130-400); Red Blood Count 4.35 10^6/uL (4.1-5.3); Red Cell Distribution Width 13.9 % (12.1-15.1)
[2020-11-16 19:11] LABS: Alanine Aminotransferase 19 U/L (0-33); Albumin Level 4.4 g/dL (3.5-5.2); Alkaline Phosphatase 70 IU/L (35-105); Anion Gap 15.4 (5-19); Aspartate Amino Transferase 18 U/L (0-32); Blood Urea Nitrogen 22 mg/dL (8-23); Calcium 9.5 mg/dL (8.5-10.5); Carbon Dioxide 27 mmol/L (22-29); Chloride 100 mmol/L (98-107); Globulin 3.4 g/dL (1.3-4.6); Glomerular Filtration Rate 50.5 mL/min (90-130); Glucose 87 mg/dL (65-115); Osmolality Calculated 289 mOsm/kg (285-295); Potassium 4.4 mmol/L (3.5-5.1); Sodium 138 mmol/L (136-145); Total Bilirubin 0.2 mg/dL (0.15-1.2); Total Protein 7.8 g/dL (6.6-8.7)
[2020-11-16 19:17] LABS: Troponin(5th) Baseline 6 ng/L (0-10)
[2020-11-16 19:50] VITALS: BP 183/101; PULSE 81; RESP 18; O2SAT 94
[2020-11-16 19:53] VITALS: BP 144/82; PULSE 75; RESP 24; O2SAT 95
[2020-11-16 20:02] VITALS: BP 141/88; PULSE 83; RESP 22; O2SAT 94
== END 2020-11-16 20:16 | disposition home or self-care (01) ==
PROVIDERS: Emergency Provider Emergency Medicine
DX: R11.10 Vomiting, unspecified (principal); R07.89 Other chest pain; I47.1 Supraventricular tachycardia
CPT/HCPCS: 71045; 80053; 84484; 85025; 93005; 96374; 96375; 99283; J2405

== ENCOUNTER 2021-01-11 20:58 | Emergency (ER) | payer SELFPAY ==
[2021-01-11 21:01] VITALS: BP 116/77; PULSE 190; RESP 18; TEMP 36.1; O2SAT 94; BMI 26.5
--- NOTE | 2021-01-11 21:06 | XRR_ITS ---
PROCEDURE INFORMATION: Exam: XR Chest Exam date and time: 01/11/2021 9:07 PM Age: 60 years old Clinical indication: Patient HX: Chest pain and right arm numbness; Additional info: Cp TECHNIQUE: Imaging protocol: XR of the chest. Views: 1 view. COMPARISON: CR XR chest 1V portable [id number] 11/16/2020 6:22 PM FINDINGS: Lungs: Unremarkable. No consolidation. Pleural spaces: Unremarkable. No pleural effusion. No pneumothorax. Heart/Mediastinum: Unremarkable. No cardiomegaly. Bones/joints: Unremarkable. XR/XR chest 1V portable [id number] IMPRESSION: No acute findings.
--- NOTE | 2021-01-11 21:06 | ECG_ITS ---
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 Measurements Intervals [place] Rate: 92 P: 14 WA: 168 QRS: 65 QRSD: 82 T: 57 QT: 362 QTc: 448 Interpretive Statements SINUS RHYTHM MODERATE ST DEPRESSION [0.05+ mV ST DEPRESSION] Compared to ECG 11/16/2020 15:48:39 ST (T wave) deviation now present Electronically Signed On 01-13-2021 15:35:19 CDT by Zuhair Orellana M.D. [email or web address] memorial [facility].[employer]/store/NU/[id number] f
[2021-01-11] MEDS: sodium chloride 0.9% 500 ML 999 ML IV (21:10)
[2021-01-11 21:18] LABS: Basophils # 0.1 10^3/uL (0.0-0.1); Basophils % 0.7 %; Eosinophils # 0.4 10^3/uL (0.0-0.8); Eosinophils % 3.6 %; Hematocrit 40.3 % (37.0-47.0); Hemoglobin 13.3 g/dL (11.5-15.3); Lymphocytes % 34.8 %; Mean Corpuscular Hemoglobin 29.4 pg (28.0-34.0); Mean Platelet Volume 10.9 fL (7.4-10.4); Monocytes % 8.6 %; Neutrophils # 5.98 10^3/uL (1.8-7.7); Nucleated Red Blood Cells % 0 %; Platelet Count 337 10^3/cmm (130-400); Red Blood Count 4.53 10^6/uL (4.1-5.3); White Blood Count 11.5 10^3/uL (4.0-10.0)
[2021-01-11 21:30] VITALS: BP 127/85; PULSE 86; RESP 16; O2SAT 96
[2021-01-11 21:44] LABS: Troponin(5th) Baseline 6 ng/L (0-10)
--- NOTE | 2021-01-11 21:53 | ED_ITS ---
HPI - Arrhythmia/Palpitations General: Chief Complaint: Arrhythmia/Palpitations Stated Complaint: racing heart beat/r arm numbess History of Present Illness: HPI narrative: 60-year-old female with sudden onset of dizziness, diaphoresis, right arm pain, and not feeling well. She is notes that she feels like her heart was racing. 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 She drove herself to the emergency room. She still feeling like this. She has a history of this happening 2-3 times prior. She denies any other cardiac history including stents or surgery etc. MD complaint: rapid heart beat, heart racing and palpitations Onset (ago): hour(s) Duration: constant Severity: similar to previous episodes Context: occurred during rest Arrhythmia history: SVT Associated symptoms: Reports diaphoresis, nausea, sense of impending doom and short of breath; Deny anxiety or vomiting Review of Systems Const: Reports: diaphoresis Eyes: Denies: change in vision ENMT: Denies: odynophagia, swelling of lips/tongue or sinus pain Card: Reports: chest pain and palpitations; Denies: edema, swelling of feet/ankles, dyspnea on exertion or orthopnea Resp: Reports: dyspnea; Denies: productive cough, non-productive cough or wheezing GI: Reports: nausea; Denies: vomiting : Denies: dysuria or urinary frequency Musc: Denies: neck pain Skin/Breast: Denies: rash or erythema Neuro: Reports: dizziness; Denies: headache(s), vertigo or confusion Psych: Denies: anxiety PFSH ED PFSH: Family History Other Diabetes Hypertension Psychiatric illness Denies family history of CAD (coronary artery disease) Bleeding disorder Family history of premature coronary artery disease Stroke Physical Exam Const: GENERAL APPEARANCE: cooperative and ill appearing ORIENTATION/CONSCIOUSNESS: Yes oriented to person, Yes oriented to place and Yes oriented to time HENMT: COMMON NORMALS: normocephalic, external ears normal and Normal external nose present HEAD & SCALP: normocephalic; no scalp tenderness FACE & SINUS: normal facial exam NOSE: Normal external nose present and No nasal discharge present EXTERNAL EAR: Yes external ears normal Eye: COMMON NORMALS: Equal, round and reactive pupils present and EOMs intact bilaterally EYELID: eyelids normal CONJUNCTIVA: Yes conjunctival abnormal positive bilateral pallor PUPIL: Yes Equal, round and reactive pupils present Neck/C-Spine: GENERAL: No tracheal deviation Chest: COMMONS NORMALS: normal inspection of the chest CHEST: No tenderness Resp: COMMON NORMALS: clear to auscultation bilaterally EFFORT & INSPECTION: No tachypneic, No respiratory distress, No retractions, No uses accessory muscles and No tracheal deviation AUSCULTATION: clear to auscultation bilaterally, no rhonchi, no wheezes and lung sounds not diminished Cardio: COMMON NORMALS: regular rhythm RATE: tachycardic RHYTHM: regular rhythm HEART SOUNDS: no murmurs PERIPHERAL PULSES: radial pulses present GI: INSPECTION: No abdominal distension AUSCULTATION: No Hyperactive bowel sounds present and No Hypoactive bowel sounds present PALPATION: No Guarding due to palpation present (GI) and No Rigid due to palpation PERCUSSION: no dullness to percussion and no tympanic to percussion Neuro: SENSORIUM/ORIENTATION: Yes oriented to person, Yes oriented to place and Yes oriented to time Psych: COMMON NORMALS: mental status grossly normal Skin: COMMON NORMALS: no rashes or lesions noted GENERAL SKIN EXAM: no rashes or lesions noted Course Vital Signs: Vital signs: Vital Signs Temperature 97.0 F L 01/11/21 21:01 Pulse Rate 78 01/12/21 00:22 Respiratory Rate 18 01/12/21 00:22 Blood Pressure 142/85 01/12/21 00:22 Pulse Oximetry 96 01/12/21 00:22 MDM - Arrhythmia/Palpitations MDM Narrative: Medical decision making narrative: 50-year-old female with a history of SVT. This started suddenly. She presents with a heart rate in the 190s. SVT on the monitor and on EKG. She has some ST depression with her supraventricular tachycardia. She was given a bolus of 10 mg of Cardizem with conversion, she was given 10 mg more because her heart rate was ~100. Currently her heart rates 90 with a blood pressure 134/93. Her symptoms have essentially resolved. EKG at 2 hours is normal. Symptoms are resolved. We will allow her home. She was counseled on her diagnosis, and since this is happened more than once at this point, she was urged to follow-up with her regional trainer in case more outpatient testing is needed. Lab Data: Labs: Lab Results 01/11/21 01/11/21 01/11/21 Range/Units 21:13 21:13 21:13 WBC 11.5 H (4.0-10.0) 10^3/ uL RBC 4.53 (4.1-5.3) 10^6/u L Hgb 13.3 (11.5-15.3) g/dL Hct 40.3 (37.0-47.0) % MCV 89.0 (81-99) fL MCH 29.4 (28.0-34.0) pg MCHC 33.0 (30.0-36.0) g/dL RDW 14.0 (12.1-15.1) % Plt Count 337 (130-400) 10^3/c mm MPV 10.9 H (7.4-10.4) fL Neut % (Auto) 52.0 % Lymph % (Auto) 34.8 % [place] % (Auto) 8.6 % Eos % (Auto) 3.6 % Baso % (Auto) 0.7 % Neut # (Auto) 5.98 (1.8-7.7) 10^3/u L Lymph # (Auto) 4.0 (0.8-4.8) 10^3/u L [place] # (Auto) 1.0 H (0.2-0.9) 10^3/u L Eos # (Auto) 0.4 (0.0-0.8) 10^3/u L Baso # (Auto) 0.1 (0.0-0.1) 10^3/u L Nucleated RBC % (a uto) 0 % Nucleated RBCs # 0.0 /100WBC Sodium 138 (136-145) mmol/L Potassium 3.9 (3.5-5.1) mmol/L Chloride 102 (98-107) mmol/L Carbon Dioxide 21 L (22-29) mmol/L Anion Gap 18.9 (5-19) BUN 14 (8-23) mg/dL Creatinine 1.2 H (0.5-0.9) mg/dL GFR Calculation 45.7 L (90-130) mL/min Glucose 151 H (65-115) mg/dL Calculated Osmolal ity 289 (285-295) mOsm/k g Calcium 9.5 (8.5-10.5) mg/dL Total Bilirubin 0.3 (0.15-1.2) mg/dL AST 19 (0-32) U/L ALT 18 (0-33) U/L Alkaline Phosphata se 72 (35-105) IU/L Creatine Kinase 224 H (26-192) U/L Troponin T Baselin e 6 (0-10) ng/L NT-Pro-B Natriuret Pep 111 (0-125) pg/mL Total Protein 7.9 (6.6-8.7) g/dL Albumin 4.7 (3.5-5.2) g/dL Globulin 3.2 (1.3-4.6) g/dL Urine Color (Yellow) Urine Appearance (CLEAR) Urine pH (5-7) Ur Specific Gravit y (1.005-1.030) Urine Protein (Negative) Urine Glucose (UA) (Normal) Urine Ketones (Negative) Urine Blood (Negative) Urine Nitrate (Negative) Urine Bilirubin (Negative) Urine Urobilinogen (Negative) mg/dL Ur Leukocyte Gloria ase (Negative) 01/11/21 Range/Units 23:19 WBC (4.0-10.0) 10^3/ uL RBC (4.1-5.3) 10^6/u L Hgb (11.5-15.3) g/dL Hct (37.0-47.0) % MCV (81-99) fL MCH (28.0-34.0) pg MCHC (30.0-36.0) g/dL RDW (12.1-15.1) % Plt Count (130-400) 10^3/c mm MPV (7.4-10.4) fL Neut % (Auto) % Lymph % (Auto) % [place] % (Auto) % Eos % (Auto) % Baso % (Auto) % Neut # (Auto) (1.8-7.7) 10^3/u L Lymph # (Auto) (0.8-4.8) 10^3/u L [place] # (Auto) (0.2-0.9) 10^3/u L Eos # (Auto) (0.0-0.8) 10^3/u L Baso # (Auto) (0.0-0.1) 10^3/u L Nucleated RBC % (a uto) % Nucleated RBCs # /100WBC Sodium (136-145) mmol/L Potassium (3.5-5.1) mmol/L Chloride (98-107) mmol/L Carbon Dioxide (22-29) mmol/L Anion Gap (5-19) BUN (8-23) mg/dL Creatinine (0.5-0.9) mg/dL GFR Calculation (90-130) mL/min Glucose (65-115) mg/dL Calculated Osmolal ity (285-295) mOsm/k g Calcium (8.5-10.5) mg/dL Total Bilirubin (0.15-1.2) mg/dL AST (0-32) U/L ALT (0-33) U/L Alkaline Phosphata se (35-105) IU/L Creatine Kinase (26-192) U/L Troponin T Baselin e (0-10) ng/L NT-Pro-B Natriuret Pep (0-125) pg/mL Total Protein (6.6-8.7) g/dL Albumin (3.5-5.2) g/dL Globulin (1.3-4.6) g/dL Urine Color Yellow (Yellow) Urine Appearance Clear (CLEAR) Urine pH 7 (5-7) Ur Specific Gravit y 1.010 (1.005-1.030) Urine Protein Neg (Negative) Urine Glucose (UA) Norm (Normal) Urine Ketones Negative (Negative) Urine Blood Neg (Negative) Urine Nitrate Negative (Negative) Urine Bilirubin Neg (Negative) Urine Urobilinogen Norm (Negative) mg/dL Ur Leukocyte Gloria ase Negative (Negative) Critical Care Time Critical Care Time: Critical Care Time: Yes Total Critical Care Time: 30 Attestation: This case had a high probability of a clinically significant, sudden, or life threatening deterioration of this patient's condition which required my full and direct attention, intervention and personal management. Discharge Plan Discharge Patient Disposition: Home Clinical Impression: Supraventricular tachycardia Condition: Stable Prescriptions: No Action ginseng 1 tab PO DAILY@629 RF: 0 atorvastatin 40 mg tablet 40 mg PO BEDTIME@1999 RF: 0 aspirin 81 mg tablet,delayed release (DR/EC) 162 mg PO DAILY@629 RF: 0 metoprolol tartrate 25 mg tablet 25 mg PO BID@ Qty: 30 RF: 0 multivitamin Tablet 1 tab PO DAILY@0630 RF: 0 cyanocobalamin (vitamin B-12) [Vitamin B-12] 1,000 mcg Tablet 3,000 mcg PO DAILY@0630 RF: 0 Discharge Orders: Discharge ED (Routine); Ordered 01/11/21 Ordered By: Manny Pate Discharge Diet: Advance as tolerated Discharge Activity: Increase activity as tolerated Patient Instructions: Supraventricular Tachycardia (ED) Activity Restrictions/Additional Instructions: Return for repeated episodes of chest pain, palpitations or fast heart rate, dizziness, syncope or passing out, any other concerning symptoms. Follow-up with your doctor this coming week. More tests may need to be run as an outpatient. Coding Level of Care Code ED Production Specialist for Sarita Fwfreddie Exam Comprehensive
[2021-01-11 21:55] LABS: Alanine Aminotransferase 18 U/L (0-33); Albumin Level 4.7 g/dL (3.5-5.2); Alkaline Phosphatase 72 IU/L (35-105); Anion Gap 18.9 (5-19); Aspartate Amino Transferase 19 U/L (0-32); Blood Urea Nitrogen 14 mg/dL (8-23); Calcium 9.5 mg/dL (8.5-10.5); Carbon Dioxide 21 mmol/L (22-29); Chloride 102 mmol/L (98-107); Creatine Phosphokinase 224 U/L (26-192); Globulin 3.2 g/dL (1.3-4.6); Glomerular Filtration Rate 45.7 mL/min (90-130); Glucose 151 mg/dL (65-115); NT Pro B Type Natriuretic Pept 111 pg/mL (0-125); Osmolality Calculated 289 mOsm/kg (285-295); Potassium 3.9 mmol/L (3.5-5.1); Sodium 138 mmol/L (136-145); Total Bilirubin 0.3 mg/dL (0.15-1.2); Total Protein 7.9 g/dL (6.6-8.7)
--- NOTE | 2021-01-11 21:56 | ECG_ITS ---
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 Measurements Intervals [place] Rate: 189 P: NM: QRS: 64 QRSD: 77 T: 59 QT: 237 QTc: 421 Interpretive Statements SUPRAVENTRICULAR TACHYCARDIA MARKED ST DEPRESSION Compared to ECG 11/16/2020 15:48:39 ST (T wave) deviation now present Sinus rhythm no longer present Electronically Signed On 01-13-2021 15:35:34 CDT by Zuhair Orellana M.D. [email or web address]/[id number] f
[2021-01-11 22:00] VITALS: BP 130/92; BP 145/93; PULSE 87; PULSE 89; RESP 18; O2SAT 93; O2SAT 96
[2021-01-11 23:00] VITALS: BP 169/113; PULSE 82; RESP 20; O2SAT 98
[2021-01-11 23:05] VITALS: BP 169/113; PULSE 83; RESP 16; O2SAT 95
--- NOTE | 2021-01-11 23:06 | ECG_ITS ---
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 Measurements Intervals [place] Rate: 81 P: 52 VT: 175 QRS: 61 QRSD: 88 T: 59 QT: 380 QTc: 442 Interpretive Statements SINUS RHYTHM Compared to ECG 01/11/2021 21:14:53 ST (T wave) deviation no longer present Electronically Signed On 01-13-2021 15:38:24 CDT by Zuhair Orellana M.D. [email or web address] [facility] hospital.[employer]/store/OM/[id number]
[2021-01-11 23:30] VITALS: BP 147/95; PULSE 77
[2021-01-11 23:35] LABS: Add Urine Microscopic? NO; Charge for UA Resulting for Rev
[2021-01-11 23:36] LABS: Bilirubin Urine Neg (Negative); Blood Urine Neg (Negative); Glucose Urine UA Norm (Normal); Ketones Urine Negative (Negative); Leukocyte Esterase Urine Negative (Negative); Nitrate Urine Negative (Negative); Protein Urine Neg (Negative); Urine Appearance Clear (CLEAR); Urine Color Yellow (Yellow); Urobilinogen Urine Norm (Negative); pH Urine 7 (5-7)
[2021-01-12] VITALS: BP 142/85; PULSE 75; RESP 20; O2SAT 95
[2021-01-12 00:22] VITALS: BP 142/85; PULSE 78; RESP 18; O2SAT 96
== END 2021-01-12 00:21 | disposition home or self-care (01) ==
PROVIDERS: Emergency Provider Emergency Medicine
DX: I47.1 Supraventricular tachycardia (principal); Z79.82 Long term (current) use of aspirin
CPT/HCPCS: 71045; 80053; 81003; 82550; 83880; 84484; 85025; 93005; 96374; 99284; J3490; J7040

== ENCOUNTER 2021-07-11 08:02 | Emergency (ER) | payer SELFPAY ==
[2021-07-11 08:16] VITALS: BP 171/87; PULSE 72; RESP 18; TEMP 36.9; O2SAT 96; BMI 25.7
[2021-07-11 08:20] VITALS: BP 140/84; PULSE 68; RESP 17; O2SAT 97
--- NOTE | 2021-07-11 08:34 | XR_ITS ---
WS: [id number] XR chest 1V portable [id number] REASON FOR EXAM: dyspnea/cough FINDINGS: The chest is unchanged compared to 11/16/2020. Mild tortuosity thoracic aorta with normal heart size. No active pulmonary parenchymal or pleural disease. Degenerative change in the mid and lower thoracic spine. XR/XR chest 1V portable [id number] IMPRESSION: No acute chest abnormality identified.
[2021-07-11 08:35] VITALS: BP 125/78; PULSE 67; RESP 18; O2SAT 97
[2021-07-11 08:45] LABS: Basophils # 0.1 10^3/uL (0.0-0.1); Basophils % 0.7 %; Eosinophils # 0.3 10^3/uL (0.0-0.8); Eosinophils % 3.7 %; Lymphocytes # 1.6 10^3/uL (0.8-4.8); Mean Corpuscular HGB Conc 32.4 g/dL (30.0-36.0); Mean Corpuscular Hemoglobin 29.6 pg (28.0-34.0); Mean Corpuscular Volume 91.4 fl (81-99); Mean Platelet Volume 10.8 fL (7.4-10.4); Monocytes # 0.6 10^3/uL (0.2-0.9); Monocytes % 8.1 %; Neutrophils # 4.74 10^3/uL (1.8-7.7); Neutrophils % 65.2 %; Nucleated Red Blood Cells % 0 %; Platelet Count 298 10^3/cmm (130-400); Red Blood Count 4.05 10^6/uL (4.1-5.3); Red Cell Distribution Width 14.2 % (12.1-15.1); White Blood Count 7.3 10^3/uL (4.0-10.0)
[2021-07-11 08:51] VITALS: BP 125/78; PULSE 67; RESP 18; O2SAT 96
--- NOTE | 2021-07-11 09:09 | W.ED.CHESTPA ---
HPI - Chest Pain General: Chief Complaint: Chest Pain Stated Complaint: Chest Palpitations Time Seen by Provider: 07/11/21 08:05 History of Present Illness: HPI narrative: 61-year-old female who presents to the emergency room with complaint of rapid heart rate palpitations. She has had these episodes in the past and been evaluated. She was seen a year or longer ago by Dr. Cross and was supposed to have further follow-up but did not because of insurance issues. She reports working in a high stress environment which seems to exacerbate this. At times she will get chest discomfort palpitations and racing heart while at work she will get lightheaded and dizzy from this and then sit down but will resolve when she rests. She denies any fever sweats chills cough vomiting diarrhea. No history of hypothyroidism. She was prescribed metoprolol but has not been taking it. MD complaint: chest heaviness Onset (ago): minute(s) Timing of current episode: episodic Prior episodes: Yes Onset: during rest Pain location: left chest Pain radiation: none Severity: mild Quality: heaviness Relieving factors: rest Exacerbating factors: stress Associated symptoms: Reports dyspnea, palpitations and sense of impending doom; Deny abdominal pain, diaphoresis, fever(s), leg edema, nausea, syncope or vomiting Treatment prior to arrival: none Review of Systems Const: Denies: fever(s) or diaphoresis ENMT: Denies: throat pain, ear or mastoid pain, nasal discharge or nasal congestion Card: Reports: palpitations; Denies: syncope Resp: Reports: dyspnea GI: Denies: abdominal pain, nausea or vomiting : Denies: flank pain, difficulty voiding, dysuria, urinary frequency or urinary urgency Skin/Breast: Denies: rash or pruritus PFSH ED PFSH: Family History Other Diabetes Hypertension Psychiatric illness Denies family history of CAD (coronary artery disease) Bleeding disorder Family history of premature coronary artery disease Stroke Physical Exam Const: COMMON NORMALS: no acute distress GENERAL APPEARANCE: cooperative and comfortable ORIENTATION/CONSCIOUSNESS: Yes awake, Yes oriented to person, Yes oriented to place and Yes oriented to time HENMT: COMMON NORMALS: normocephalic, atraumatic and hearing grossly normal bilaterally HEAD & SCALP: normocephalic and atraumatic Neck/C-Spine: COMMON NORMALS: no JVD Resp: COMMON NORMALS: normal respiratory effort, No retractions, No use of accessory muscles and clear to auscultation bilaterally AUSCULTATION: clear to auscultation bilaterally Cardio: COMMON NORMALS: no JVD, regular rate, regular rhythm and No murmurs present (Cardio) RATE: regular rate RHYTHM: regular rhythm GI: COMMON NORMALS: Soft to palpation and No hepatosplenomegaly present AUSCULTATION: Yes normoactive bowel sounds PALPATION: Yes Soft to palpation, No Tenderness to palpation present (GI), No Guarding due to palpation present (GI) and Yes No hepatosplenomegaly present Extremity: COMMON NORMALS: normal to inspection, capillary refill normal, no clubbing, cyanosis or edema, no calf tenderness and no pedal edema Neuro: SENSORIUM/ORIENTATION: Yes oriented to person, Yes oriented to place and Yes oriented to time Skin: COMMON NORMALS: no rashes or lesions noted GENERAL SKIN EXAM: no rashes or lesions noted Course Vital Signs: Vital signs: Vital Signs Temperature 98.4 F 07/11/21 08:16 Pulse Rate 69 07/11/21 11:59 Respiratory Rate 17 07/11/21 11:59 Blood Pressure 169/95 07/11/21 11:59 Pulse Oximetry 96 07/11/21 11:59 MDM - Chest Pain MDM Narrative: Medical decision making narrative: EKGs labs and imaging reviewed as on the chart. No acute ST changes noted on EKG troponins negative. Patient is currently been prescribed metoprolol but she is not been taking it. And at that her heart rate is still in the low 60s for the much of her visit here. She had an occasional PVC and noted on the rhythm monitor but nothing else significant. Would recommend follow-up with cardiology. She is currently taking anything that had previously been prescribed amount of go ahead and put her on amlodipine 2.5 her blood pressure was rather elevated when she first arrived to think that will take the edge off her blood pressure but she still will need further evaluation we will try to get [facility] and [facility] or through [facility] with one of the other local clinics. Return if she has further problems. Lab Data: Labs: Lab Results 07/11/21 07/11/21 07/11/21 08:36 08:36 08:36 WBC 7.3 10^3/uL 10^3/ uL (4.0-10.0) RBC 4.05 10^6/uL L 10 ^6/uL (4.1-5.3) Hgb 12.0 g/dL g/dL (11.5-15.3) Hct 37.0 % % (37.0-47.0) MCV 91.4 fl fl (81-99) MCH 29.6 pg pg (28.0-34.0) MCHC 32.4 g/dL g/dL (30.0-36.0) RDW 14.2 % % (12.1-15.1) Plt Count 298 10^3/cmm 10^3 /cmm (130-400) MPV 10.8 fL H fL (7.4-10.4) Neut % (Auto) 65.2 % % Lymph % (Auto) 22.0 % % [place] % (Auto) 8.1 % % Eos % (Auto) 3.7 % % Baso % (Auto) 0.7 % % Neut # (Auto) 4.74 10^3/uL 10^3 /uL (1.8-7.7) Lymph # (Auto) 1.6 10^3/uL 10^3/ uL (0.8-4.8) [place] # (Auto) 0.6 10^3/uL 10^3/ uL (0.2-0.9) Eos # (Auto) 0.3 10^3/uL 10^3/ uL (0.0-0.8) Baso # (Auto) 0.1 10^3/uL 10^3/ uL (0.0-0.1) Nucleated RBC % (a uto) 0 % % Nucleated RBCs # 0.0 /100WBC /100W BC Sodium 137 mmol/L mmol/L (136-145) Potassium 4.0 mmol/L mmol/L (3.5-5.1) Chloride 102 mmol/L mmol/L (98-107) Carbon Dioxide 24 mmol/L mmol/L (22-29) Anion Gap 15.0 (5-19) BUN 17 mg/dL mg/dL (8-23) Creatinine 0.9 mg/dL mg/dL (0.5-0.9) GFR Calculation 63.4 mL/min L mL/ min (90-130) Glucose 128 mg/dL H mg/dL (65-115) Calculated Osmolal ity 287 mOsm/kg mOsm/ kg (285-295) Calcium 9.3 mg/dL mg/dL (8.5-10.5) Total Bilirubin 0.3 mg/dL mg/dL (0.15-1.2) AST 19 U/L U/L (0-32) ALT 17 U/L U/L (0-33) Alkaline Phosphata se 68 IU/L IU/L (35-105) Troponin T Baselin e 6 ng/L ng/L (0-10) Troponin T 120 Min [place] Troponin T Total Protein 7.0 g/dL g/dL (6.6-8.7) Albumin 4.3 g/dL g/dL (3.5-5.2) Globulin 2.7 g/dL g/dL (1.3-4.6) TSH 1.31 uIU/mL uIU/m L (0.27-4.20) Urine Color Urine Appearance Urine pH Ur Specific Gravit y Urine Protein Urine Glucose (UA) Urine Ketones Urine Blood Urine Nitrate Urine Bilirubin Urine Urobilinogen Ur Leukocyte Gloria ase 07/11/21 07/11/21 10:19 10:40 WBC RBC Hgb Hct MCV MCH MCHC RDW Plt Count MPV Neut % (Auto) Lymph % (Auto) [place] % (Auto) Eos % (Auto) Baso % (Auto) Neut # (Auto) Lymph # (Auto) [place] # (Auto) Eos # (Auto) Baso # (Auto) Nucleated RBC % (a uto) Nucleated RBCs # Sodium Potassium Chloride Carbon Dioxide Anion Gap BUN Creatinine GFR Calculation Glucose Calculated Osmolal ity Calcium Total Bilirubin AST ALT Alkaline Phosphata se Troponin T Baselin e Troponin T 120 Min [place] 6.78 ng/L ng/L (0-10) Delta Troponin T 0.78 ABS# ABS# (0-10) Total Protein Albumin Globulin TSH Urine Color Colorless (Yellow) Urine Appearance Clear (CLEAR) Urine pH 7 (5-7) Ur Specific [place]it y 1.005 (1.005-1.030) Urine Protein Neg (Negative) Urine Glucose (UA) Norm (Normal) Urine Ketones Negative (Negative) Urine Blood Neg (Negative) Urine Nitrate Negative (Negative) Urine Bilirubin Neg (Negative) Urine Urobilinogen Norm mg/dL mg/dL (Negative) Ur Leukocyte Gloria ase Negative (Negative) Discharge Plan Discharge Patient Disposition: Home Clinical Impression: Palpitation, HTN (hypertension) Condition: Stable Prescriptions: New amlodipine 2.5 mg tablet 2.5 mg PO DAILY Qty: 30 RF: 0 Discontinued ginseng 1 tab PO DAILY@06 RF: 0 atorvastatin 40 mg tablet 40 mg PO BEDTIME@1999 RF: 0 metoprolol tartrate 25 mg tablet 25 mg PO BID@ Qty: 30 RF: 0 cyanocobalamin (vitamin B-12) [Vitamin B-12] 1,000 mcg Tablet 3,000 mcg PO DAILY@0630 RF: 0 No Action aspirin 81 mg tablet,delayed release (DR/EC) 162 mg PO DAILY@0630 RF: 0 multivitamin Tablet 1 tab PO DAILY@0630 RF: 0 Discharge Orders: Discharge ED (Routine); Ordered 07/11/21 Ordered By: Jimbo De Los Santos Discharge Diet: Usual diet Discharge Activity: Increase activity as tolerated Patient Instructions: Opioid Safety Activity Restrictions/Additional Instructions: Case management will assist to establish either at the [facility] or with another PCP in town. Coding Level of Care Code ED Technical Sales Associate for Sarita Fwd Exam Comprehensive
[2021-07-11 09:19] LABS: Troponin(5th) Baseline 6 ng/L (0-10)
[2021-07-11 09:28] LABS: Alanine Aminotransferase 17 U/L (0-33); Albumin Level 4.3 g/dL (3.5-5.2); Alkaline Phosphatase 68 IU/L (35-105); Aspartate Amino Transferase 19 U/L (0-32); Blood Urea Nitrogen 17 mg/dL (8-23); Calcium 9.3 mg/dL (8.5-10.5); Carbon Dioxide 24 mmol/L (22-29); Chloride 102 mmol/L (98-107); Globulin 2.7 g/dL (1.3-4.6); Glomerular Filtration Rate 63.4 mL/min (90-130); Glucose 128 mg/dL (65-115); Osmolality Calculated 287 mOsm/kg (285-295); Sodium 137 mmol/L (136-145); Thyroid Stimulating Hormone 1.31 uIU/mL (0.27-4.20); Total Bilirubin 0.3 mg/dL (0.15-1.2)
[2021-07-11 10:32] LABS: Add Urine Microscopic? NO; Charge for UA Resulting for Rev
--- NOTE | 2021-07-11 10:33 | ECG_ITS ---
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 Measurements Intervals [place] Rate: 59 P: 32 [place]: 158 QRS: 48 QRSD: 89 T: 47 QT: 436 QTc: 435 Interpretive Statements SINUS BRADYCARDIA Compared to ECG 07/11/2021 08:27:42 Sinus rhythm no longer present Electronically Signed On 07-12-2021 19:43:35 CDT by Eve Grant M.D. [id number]
[2021-07-11 10:42] LABS: Bilirubin Urine Neg (Negative); Blood Urine Neg (Negative); Glucose Urine UA Norm (Normal); Ketones Urine Negative (Negative); Leukocyte Esterase Urine Negative (Negative); Nitrate Urine Negative (Negative); Protein Urine Neg (Negative); Specific Gravity, Urine 1.005 (1.005-1.030); Urine Appearance Clear (CLEAR); Urine Color Colorless (Yellow); Urobilinogen Urine Norm (Negative); pH Urine 7 (5-7)
[2021-07-11 11:02] LABS: Troponin 5 2HR 6.78 ng/L (0-10); Troponin 5 2HR Delta 0.78 ABS# (0-10)
[2021-07-11 11:59] VITALS: BP 169/95; PULSE 69; RESP 17; O2SAT 96
--- NOTE | 2021-07-11 14:33 | ECG_ITS ---
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 Measurements Intervals [place] Rate: 67 P: 17 SD: 164 QRS: 52 QRSD: 76 T: 56 QT: 414 QTc: 439 Interpretive Statements SINUS RHYTHM Compared to ECG 01/11/2021 23:09:00 No significant changes Electronically Signed On 07-12-2021 19:44:03 CDT by Eve Grant M.D. [id number]
== END 2021-07-11 12:04 | disposition home or self-care (01) ==
PROVIDERS: Emergency Provider Family Medicine
DX: R00.2 Palpitations (principal); I10 Essential (primary) hypertension; Z79.82 Long term (current) use of aspirin
CPT/HCPCS: 36415; 71045; 80053; 81003; 84443; 84484; 85025; 93005; 99283

== ENCOUNTER 2022-04-10 21:17 | Emergency (ER) | payer SELFPAY ==
[2022-04-10 21:52] VITALS: BP 174/94; PULSE 102; RESP 16; TEMP 38.8; O2SAT 92
[2022-04-10 21:55] VITALS: BP 156/86; PULSE 110; RESP 16; TEMP 37.1; O2SAT 91
--- NOTE | 2022-04-10 22:05 | CTR_ITS ---
PROCEDURE INFORMATION: Exam: CT Head Without Contrast Exam date and time: 04/10/2022 10:47 PM Age: 62 years old Clinical indication: Pain; Headache not specified; Additional info: Headache behind the eyes with vomiting TECHNIQUE: Imaging protocol: Computed tomography of the head without contrast. Radiation optimization: All CT scans at this facility use at least one of these dose optimization techniques: automated exposure control; mA and/or kV adjustment per patient size (includes targeted exams where dose is matched to clinical indication); or iterative reconstruction. COMPARISON: No relevant prior studies available. RADIATION DOSE METRICS: Total DLP (mGy-cm): 796.08 FINDINGS: Brain: Normal. No hemorrhage or evidence of acute infarction. No mass effect. Cerebral ventricles: No ventriculomegaly. Paranasal sinuses: Visualized sinuses are unremarkable. No fluid levels. Mastoid air cells: Visualized mastoid air cells are well aerated. Bones/joints: Unremarkable. No acute fracture. Soft tissues: Unremarkable. CT/CT head wo con* [id number] IMPRESSION: No acute intracranial abnormality.
--- NOTE | 2022-04-10 22:05 | XRR_ITS ---
PROCEDURE INFORMATION: Exam: XR Chest Exam date and time: 04/10/2022 10:28 PM Age: 62 years old Clinical indication: Fever and shortness of breath; Patient HX: C/O fever with SOB TECHNIQUE: Imaging protocol: Radiologic exam of the chest. Views: 1 view. COMPARISON: CR XR chest 1V portable [id number] 07/11/2021 8:38 AM FINDINGS: Lungs: The lungs are clear. Pleural spaces: Unremarkable. No pleural effusion. No pneumothorax. Heart/Mediastinum: Unremarkable. No cardiomegaly. Bones/joints: Unremarkable. XR/XR chest 1V portable [id number] IMPRESSION: No acute cardiopulmonary abnormality.
--- NOTE | 2022-04-10 22:06 | ECG_ITS ---
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 Measurements Intervals [place] Rate: 97 P: 43 [place]: 163 QRS: 42 QRSD: 73 T: 36 QT: 350 QTc: 445 Interpretive Statements SINUS RHYTHM Compared to ECG 07/11/2021 10:25:03 Sinus bradycardia no longer present Electronically Signed On 04-11-2022 18:17:54 CDT by Zuhair Orellana M.D. [email or web address]/[id number]
[2022-04-10 22:16] LABS: Basophils # 0.1 10^3/uL (0.0-0.1); Basophils % 0.8 %; Eosinophils # 0.1 10^3/uL (0.0-0.8); Eosinophils % 1.5 %; Hematocrit 38.2 % (37.0-47.0); Hemoglobin 12.5 g/dL (11.5-15.3); Lymphocytes # 0.8 10^3/uL (0.8-4.8); Lymphocytes % 9.9 %; Mean Corpuscular HGB Conc 32.7 g/dL (30.0-36.0); Mean Corpuscular Hemoglobin 29.3 pg (28.0-34.0); Mean Corpuscular Volume 89.7 fl (81-99); Mean Platelet Volume 10.6 fL (7.4-10.4); Monocytes # 1.1 10^3/uL (0.2-0.9); Neutrophils # 5.55 10^3/uL (1.8-7.7); Neutrophils % 73.1 %; Nucleated Red Blood Cells % 0 %; Platelet Count 272 10^3/cmm (130-400); Red Blood Count 4.26 10^6/uL (4.1-5.3); Red Cell Distribution Width 14.4 % (12.1-15.1); White Blood Count 7.6 10^3/uL (4.0-10.0)
--- NOTE | 2022-04-10 22:31 | ED_ITS ---
HPI - General Adult General: Chief complaint: General Medical Stated complaint: Lethargic/SOB/N/V Time Seen by Provider: 04/10/22 22:04 Source: patient Mode of arrival: ambulatory Limitations: no limitations History of Present Illness: 62-year-old female states that over the last 2 days she has been having some chills body aches along with fever. States been having headache along with some nausea vomiting triage nurse states she is confused in triage but here she is answering all my questions appropriately she is ANO x4. She states that she just has not felt well all she does work around other people and has had sick contacts unsure if she has been exposed to COVID. Denies any chest pain has had a slight cough. Associated symptoms: Reports dyspnea, headache(s) and nausea; Deny chest pain or rash Review of Systems Const: Reports: fever(s), chills and body aches Eyes: Denies: blurry vision or eye discomfort ENMT: Denies: throat pain or dental pain Card: Denies: chest pain Resp: Reports: dyspnea GI: Reports: nausea : Denies: dysuria Musc: Denies: neck pain or back pain Skin/Breast: Denies: rash Neuro: Reports: headache(s) Psych: Denies: depression Nick/Lymph: Denies: easy bruising All/Imm: Denies: urticaria PFSH ED PFSH: Medical History (Updated 04/11/22 @ 00:40 by Magdalena Hayden MD) No pertinent past medical history Family History Other Diabetes Hypertension Psychiatric illness Denies family history of CAD (coronary artery disease) Bleeding disorder Family history of premature coronary artery disease Stroke Social History (Updated 04/10/22 @ 22:31 by Magdalena Hayden MD) Substance/Drug Use: never Physical Exam Const: COMMON NORMALS: patient oriented x3 HENMT: COMMON NORMALS: normocephalic and atraumatic HEAD & SCALP: normocephalic and atraumatic Eye: COMMON NORMALS: Equal, round and reactive pupils present and EOMs intact bilaterally PUPIL: Yes Equal, round and reactive pupils present Neck/C-Spine: COMMON NORMALS: full ROM and supple Chest: COMMONS NORMALS: normal inspection of the chest and normal palpation of entire chest wall Resp: COMMON NORMALS: normal respiratory effort, No retractions, No use of accessory muscles and clear to auscultation bilaterally AUSCULTATION: clear to auscultation bilaterally Cardio: COMMON NORMALS: regular rate, regular rhythm and No murmurs present (Cardio) RATE: regular rate RHYTHM: regular rhythm GI: COMMON NORMALS: Normal to inspection, nondistended, normoactive bowel sounds present, Soft to palpation, non-tender and no masses PALPATION: Yes Soft to palpation Extremity: COMMON NORMALS: normal to inspection and full ROM Neuro: COMMON NORMALS: patient oriented x3, moves all extremities and no focal motor deficits Psych: COMMON NORMALS: mental status grossly normal, Normal thought process present and cooperative THOUGHT PROCESS: Normal thought process present Skin: COMMON NORMALS: no rashes or lesions noted and no wounds GENERAL SKIN EXAM: no rashes or lesions noted Course Vital Signs: Vital signs: Vital Signs Temperature 99.9 F H 04/10/22 23:30 Pulse Rate 93 04/10/22 23:30 Respiratory Rate 16 04/10/22 23:30 Blood Pressure 154/99 04/10/22 23:30 Pulse Oximetry 96 04/10/22 23:30 MDM - General Adult Medical Decision Making Patient presents here with fever and body aches she did test positive for COVID she is well-appearing here will prescribe her Paxlovid she has no signs of pneumonia she is awake alert able answer my questions appropriately she is to follow-up with PCP and return if worsening. Lab Data : 04/10/22 22:09 04/10/22 22:09 Radiology Impressions Chest X-Ray 04/10/22 22:05 IMPRESSION: No acute cardiopulmonary abnormality. Head CT 04/10/22 22:05 IMPRESSION: No acute intracranial abnormality. Laboratory Results WBC 7.6 10^3/uL (4.0-10.0) 04/10/22 22:09 RBC 4.26 10^6/uL (4.1-5.3) 04/10/22 22:09 Hgb 12.5 g/dL (11.5-15.3) 04/10/22 22:09 Hct 38.2 % (37.0-47.0) 04/10/22 22:09 MCV 89.7 fl (81-99) 04/10/22 22:09 MCH 29.3 pg (28.0-34.0) 04/10/22 22:09 MCHC 32.7 g/dL (30.0-36.0) 04/10/22 22:09 RDW 14.4 % (12.1-15.1) 04/10/22 22:09 Plt Count 272 10^3/cmm (130-400) 04/10/22 22:09 MPV 10.6 fL (7.4-10.4) H 04/10/22 22:09 Neut % (Auto) 73.1 % 04/10/22 22:09 Lymph % (Auto) 9.9 % 04/10/22 22:09 [place] % (Auto) 14.0 % 04/10/22 22:09 Eos % (Auto) 1.5 % 04/10/22 22:09 Baso % (Auto) 0.8 % 04/10/22 22:09 Neut # (Auto) 5.55 10^3/uL (1.8-7.7) 04/10/22 22:09 Lymph # (Auto) 0.8 10^3/uL (0.8-4.8) 04/10/22 22:09 [place] # (Auto) 1.1 10^3/uL (0.2-0.9) H 04/10/22 22:09 Eos # (Auto) 0.1 10^3/uL (0.0-0.8) 04/10/22 22:09 Baso # (Auto) 0.1 10^3/uL (0.0-0.1) 04/10/22 22:09 Nucleated RBC % (auto) 0 % 04/10/22 22:09 Nucleated RBCs # 0.0 /100WBC 04/10/22 22:09 Sodium 133 mmol/L (136-145) L 04/10/22 22:09 Potassium 4.1 mmol/L (3.5-5.1) 04/10/22 22:09 Chloride 99 mmol/L (98-107) 04/10/22 22:09 Carbon Dioxide 21 mmol/L (22-29) L 04/10/22 22:09 Anion Gap 17.1 (5-19) 04/10/22 22:09 BUN 12 mg/dL (8-23) 04/10/22 22:09 Creatinine 0.9 mg/dL (0.5-0.9) 04/10/22 22:09 GFR Calculation 63.2 mL/min (90-130) L 04/10/22 22:09 Glucose 130 mg/dL (65-115) H 04/10/22 22:09 Calculated Osmolality 278 mOsm/kg (285-295) L 04/10/22 22:09 Lactate 1.2 mmol/L (0.5-2.2) 04/10/22 22:09 Calcium 9.0 mg/dL (8.5-10.5) 04/10/22 22:09 Total Bilirubin 0.2 mg/dL (0.15-1.2) 04/10/22 22:09 AST 20 U/L (0-32) 04/10/22 22:09 ALT 17 U/L (0-33) 04/10/22 22:09 Alkaline Phosphatase 63 IU/L (35-105) 04/10/22 22:09 NT-Pro-B Natriuret Pep 98 pg/mL (0-125) 04/10/22 22:09 Total Protein 7.9 g/dL (6.6-8.7) 04/10/22 22:09 Albumin 4.6 g/dL (3.5-5.2) 04/10/22 22:09 Globulin 3.3 g/dL (1.3-4.6) 04/10/22 22:09 Urine Color Yellow (Yellow) 04/11/22 00:45 Urine Appearance Clear (CLEAR) 04/11/22 00:45 Urine pH 6 (5-7) 04/11/22 00:45 Ur Specific [place] 1.015 (1.005-1.030) 04/11/22 00:45 Urine Protein Neg (Negative) 04/11/22 00:45 Urine Glucose (UA) Norm (Normal) 04/11/22 00:45 Urine Ketones 1+ (Negative) H 04/11/22 00:45 Urine Blood Neg (Negative) 04/11/22 00:45 Urine Nitrate Negative (Negative) 04/11/22 00:45 Urine Bilirubin Neg (Negative) 04/11/22 00:45 Urine Urobilinogen Norm mg/dL (Negative) 04/11/22 00:45 Ur Leukocyte Esterase Negative (Negative) 04/11/22 00:45 SARS-CoV-2 Ag (Rapid) Positive (Negative) H 04/10/22 23:16 EKG Data EKG 1: I personally reviewed and interpreted this EKG as follows: EKG interpretation date: 04/10/22 EKG interpretation time: 23:35 Interpretation: nsr hr [address] or t wave abnormalities qrs 73 qtc 404 Computer generated interpretation: Chest X-Ray 04/10/22 22:05 IMPRESSION: No acute cardiopulmonary abnormality. Head CT 04/10/22 22:05 IMPRESSION: No acute intracranial abnormality. Discharge Plan Discharge Patient Disposition: Home Clinical Impression: COVID-19 Prescriptions: New Paxlovid (EUA) 150 mg x 2- 100 mg tablet See Rx Instructions .ROUTE .COMPLEX Qty: 6 0RF Rx Instructions: take TWO 150 mg tablets of nirmatrelvir with ONE 100 mg tablet of ritonavir twice daily for 5 days No Action aspirin 81 mg tablet,delayed release (DR/EC) 162 mg PO DAILY@0630 0RF multivitamin Tablet 1 tab PO DAILY@0630 0RF amlodipine 2.5 mg tablet 2.5 mg PO DAILY Qty: 30 0RF Discharge Orders: Discharge ED (Routine); Ordered 04/11/22 Ordered By: Magdalena Hayden Discharge Diet: Advance as tolerated Discharge Activity: Use walker/crutches as instructed Patient Instructions: COVID-19 (Coronavirus Disease 2019) (ED) Stand Alone Forms: Work/School Release Coding Level of Care Code ED Employment Appeals Examiner for Sarita Fwd Exam Comprehensive
[2022-04-10 22:33] LABS: Lactate (Lactic Acid level) 1.2 mmol/L (0.5-2.2)
[2022-04-10 22:41] LABS: Alanine Aminotransferase 17 U/L (0-33); Albumin Level 4.6 g/dL (3.5-5.2); Alkaline Phosphatase 63 IU/L (35-105); Anion Gap 17.1 (5-19); Aspartate Amino Transferase 20 U/L (0-32); Blood Urea Nitrogen 12 mg/dL (8-23); Carbon Dioxide 21 mmol/L (22-29); Chloride 99 mmol/L (98-107); Globulin 3.3 g/dL (1.3-4.6); Glomerular Filtration Rate 63.2 mL/min (90-130); Glucose 130 mg/dL (65-115); Osmolality Calculated 278 mOsm/kg (285-295); Potassium 4.1 mmol/L (3.5-5.1); Sodium 133 mmol/L (136-145); Total Bilirubin 0.2 mg/dL (0.15-1.2); Total Protein 7.9 g/dL (6.6-8.7)
[2022-04-10 22:44] LABS: NT Pro B Type Natriuretic Pept 98 pg/mL (0-125)
[2022-04-10] MEDS: sodium chloride 0.9% 1,000 ML 999 ML IV (23:09)
[2022-04-10] MEDS: acetaminophen 500 mg Tablet 1000 MG PO (23:11)
[2022-04-10 23:25] VITALS: PULSE 99; RESP 16; TEMP 37.7; O2SAT 94
[2022-04-10 23:30] VITALS: BP 154/99; PULSE 93; RESP 16; TEMP 37.7; O2SAT 96
[2022-04-11 00:22] LABS: SARS Covid-2 Antigen Positive (Negative)
[2022-04-11 01:02] LABS: Add Urine Microscopic? NO; Bilirubin Urine Neg (Negative); Blood Urine Neg (Negative); Charge for UA Resulting for Rev; Glucose Urine UA Norm (Normal); Ketones Urine 1+ (Negative); Leukocyte Esterase Urine Negative (Negative); Nitrate Urine Negative (Negative); Protein Urine Neg (Negative); Specific Gravity, Urine 1.015 (1.005-1.030); Urine Appearance Clear (CLEAR); Urine Color Yellow (Yellow); Urobilinogen Urine Norm (Negative); pH Urine 6 (5-7)
[2022-04-11] MEDS: dexamethasone 10 mg/mL INJ IVP (01:18)
[2022-04-11 01:32] LABS: Adenovirus Not Detected (NOT DETECT); Chlamydia Pneumoniae Not Detected (NOT DETECT); Coronavirus 229E,HKU1,NL63,OC4 Not Detected (NOT DETECT); Human Metapneumovirus Not Detected (NOT DETECT); Human Rhinovirus/Enterovirus Not Detected (NOT DETECT); Influenza A Not Detected (NOT DETECT); Influenza A H1 Not Detected (NOT DETECT); Influenza A H1-2009 Not Detected (NOT DETECT); Influenza A H3 Not Detected (NOT DETECT); Influenza B Not Detected (NOT DETECT); Mycoplasma Pneumoniae Not Detected (NOT DETECT); Parainfluenza Virus Type 1 Not Detected (NOT DETECT); Parainfluenza Virus Type 2 Not Detected (NOT DETECT); Parainfluenza Virus Type 3 Not Detected (NOT DETECT); Parainfluenza Virus Type 4 Not Detected (NOT DETECT); Respiratory Syncytial Virus A Not Detected (NOT DETECT); Respiratory Syncytial Virus B Not Detected (NOT DETECT); SARS-COV-2 Detected (NOT DETECT)
== END 2022-04-11 01:59 | disposition home or self-care (01) ==
PROVIDERS: Emergency Provider Emergency Medicine
DX: U07.1 COVID-19 (principal)
CPT/HCPCS: 70450; 71045; 80053; 81003; 83605; 83880; 85025; 87426; 87635; 93005; 96361; 96374; 99285; J1100; J7030

== ENCOUNTER 2023-06-02 20:15 | Emergency (ER) | payer SELFPAY ==
[2023-06-02 20:17] VITALS: BP 135/99; PULSE 178; RESP 16; TEMP 36.3; O2SAT 94
--- NOTE | 2023-06-02 20:22 | XRR_ITS ---
PROCEDURE INFORMATION: Exam: XR Chest Exam date and time: 06/02/2023 8:41 PM Age: 63 years old Clinical indication: Other: Passed out; Additional info: Cp TECHNIQUE: Imaging protocol: Radiologic exam of the chest. Views: 1 view. COMPARISON: CR XR chest 1V portable [id number] 04/10/2022 10:28 PM FINDINGS: Tubes, catheters and devices: External defibrillator leads are noted. Lungs: There is no pulmonary venous congestion. Visualized portions of the lungs are clear. Pleural spaces: Unremarkable. No pleural effusion. No pneumothorax. Heart/Mediastinum: Heart is within normal limits of size. Bones/joints: Unremarkable. XR/XR chest 1V portable [id number] IMPRESSION: No acute infiltrate.
--- NOTE | 2023-06-02 20:22 | ECG_ITS ---
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 Measurements Intervals [place] Rate: 84 P: 68 SD: 152 QRS: 64 QRSD: 80 T: 58 QT: 369 QTc: 438 Interpretive Statements SINUS RHYTHM POSSIBLE RIGHT VENTRICULAR CONDUCTION DELAY [RSR (QR) IN V1/V2] SEPTAL MYOCARDIAL INFARCTION , OF INDETERMINATE AGE [40+ ms Q WAVE IN V1/V2] INTERPRETATION BASED ON A DEFAULT AGE OF 40 YEARS Compared to ECG 04/10/2022 23:35:00 Myocardial infarct finding now present Electronically Signed On 06-02-2023 23:59:36 CDT by Cliff Cross M.D. [id number]
[2023-06-02] MEDS: adenosine 3 mg/mL SDV 2mL 6 MG IVP (20:36)
--- NOTE | 2023-06-02 20:37 | W.ED.ARRPALP ---
HPI - Arrhythmia/Palpitations General: Chief Complaint: Arrhythmia/Palpitations Stated Complaint: High Blood Pressure\Passed Out Time Seen by Provider: 06/02/23 20:29 Source: patient Mode of arrival: ambulatory History of Present Illness: 63-year-old female has a history of SVT she states that this afternoon she started having palpitations she laid on the couch was feeling diaphoretic and lightheaded states she felt like she was going to pass out. Patient here is in SVT heart rate currently is 169. Denies any chest pain. She had some nausea denies any vomiting. Associated symptoms: Reports pre-syncope; Deny nausea or vomiting Review of Systems Const: Denies: fever(s), chills, body aches or change in appetite Eyes: Denies: blurry vision or eye discomfort ENMT: Denies: throat pain or dental pain Card: Reports: palpitations and pre-syncope Resp: Denies: dyspnea GI: Denies: abdominal pain, nausea, vomiting or diarrhea : Denies: dysuria Musc: Denies: neck pain or back pain Skin/Breast: Denies: rash Neuro: Denies: headache(s) PFSH ED PFSH: Medical History No pertinent past medical history Family History Other Diabetes Hypertension Psychiatric illness Denies family history of CAD (coronary artery disease) Bleeding disorder Family history of premature coronary artery disease Stroke Social History Substance/Drug Use: never Physical Exam Const: COMMON NORMALS: no acute distress, patient oriented x3 and healthy appearing HENMT: COMMON NORMALS: normocephalic and atraumatic HEAD & SCALP: normocephalic and atraumatic Neck/C-Spine: COMMON NORMALS: full ROM and supple Chest: COMMONS NORMALS: normal inspection of the chest Resp: COMMON NORMALS: normal respiratory effort, No retractions, No use of accessory muscles and clear to auscultation bilaterally AUSCULTATION: clear to auscultation bilaterally Cardio: COMMON NORMALS: No murmurs present (Cardio) RATE: tachycardic GI: COMMON NORMALS: Normal to inspection, nondistended, normoactive bowel sounds present, Soft to palpation, non-tender and no masses PALPATION: Yes Soft to palpation Extremity: COMMON NORMALS: normal to inspection and full ROM Neuro: COMMON NORMALS: patient oriented x3, moves all extremities and no focal motor deficits Psych: COMMON NORMALS: mental status grossly normal, Normal thought process present and cooperative THOUGHT PROCESS: Normal thought process present Skin: COMMON NORMALS: no rashes or lesions noted and no wounds GENERAL SKIN EXAM: no rashes or lesions noted Course Vital Signs: Vital signs: Vital Signs Temperature 97.4 F L 06/02/23 20:17 Pulse Rate 87 06/02/23 21:24 Respiratory Rate 23 H 06/02/23 21:24 Blood Pressure 127/86 06/02/23 21:24 Pulse Oximetry 97 06/02/23 21:24 Oxygen Delivery Me thod Room Air 06/02/23 21:24 MDM - Arrhythmia/Palpitations Medical Decision Making Patient presents here with SVT she was converted here with adenosine. her symptoms have since resolved. she has a hx of svt. She is stable for discharge and is to follow up with cardiology and return if worsening. Medical Records I reviewed the patient's medical records. Lab Data I reviewed the patient's lab results. 06/02/23 20:25 06/02/23 20:25 Radiology Impressions Chest X-Ray 06/02/23 20:22 IMPRESSION: No acute infiltrate. Laboratory Results WBC 14.76 10^3/uL (3.29-11.43) H 06/02/23 20:25 RBC 4.36 10^6/uL (3.85-5.65) 06/02/23 20:25 Hgb 12.70 g/dL (11.27-16.99) 06/02/23 20:25 Hct 39.5 % (36-47) 06/02/23 20:25 MCV 90.6 fl (85-98) 06/02/23 20:25 MCH 29.1 pg (27-33) 06/02/23 20:25 MCHC 32.2 g/dL (30-55) 06/02/23 20:25 RDW 14.0 % (12.1-15.1) 06/02/23 20:25 Plt Count 326 10^3/cmm (157-399) 06/02/23 20:25 MPV 11.0 fL (7.4-10.4) H 06/02/23 20:25 Neut % (Auto) 69.5 % 06/02/23 20:25 Lymph % (Auto) 20.5 % 06/02/23 20:25 Esmeralda % (Auto) 7.2 % 06/02/23 20:25 Eos % (Auto) 2.0 % 06/02/23 20:25 Baso % (Auto) 0.4 % 06/02/23 20:25 Neut # (Auto) 10.25 10^3/uL (1.8-7.7) H 06/02/23 20:25 Lymph # (Auto) 3.0 10^3/uL (0.8-4.8) 06/02/23 20:25 Esmeralda # (Auto) 1.1 10^3/uL (0.2-0.9) H 06/02/23 20:25 Eos # (Auto) 0.3 10^3/uL (0.0-0.8) 06/02/23 20:25 Baso # (Auto) 0.1 10^3/uL (0.0-0.1) 06/02/23 20:25 Nucleated RBC % (auto) 0 % 06/02/23 20:25 Nucleated RBCs # 0.0 /100WBC 06/02/23 20:25 Sodium 141 mmol/L (136-145) 06/02/23 20:25 Potassium 4.6 mmol/L (3.5-5.1) 06/02/23 20:25 Chloride 107 mmol/L (98-107) 06/02/23 20:25 Carbon Dioxide 23 mmol/L (22-29) 06/02/23 20:25 Anion Gap 15.6 (5-19) 06/02/23 20:25 BUN 15 mg/dL (8-23) 06/02/23 20:25 Creatinine 1.0 mg/dL (0.5-0.9) H 06/02/23 20:25 GFR Calculation 55.8 mL/min (90-130) L 06/02/23 20:25 Glucose 133 mg/dL (65-115) H 06/02/23 20:25 Calculated Osmolality 295 mOsm/kg (285-295) 06/02/23 20:25 Calcium 9.0 mg/dL (8.5-10.5) 06/02/23 20:25 Total Bilirubin 0.2 mg/dL (0.15-1.2) 06/02/23 20:25 AST 17 U/L (0-32) 06/02/23 20:25 ALT 16 U/L (0-33) 06/02/23 20:25 Alkaline Phosphatase 68 U/L (35-105) 06/02/23 20:25 Troponin T Baseline Cancelled 06/02/23 20:25 Total Protein 6.8 g/dL (6.6-8.7) 06/02/23 20:25 Albumin 4.2 g/dL (3.5-5.2) 06/02/23 20:25 Globulin 2.6 g/dL (1.3-4.6) 06/02/23 20:25 EKG Data EKG 1: I personally reviewed and interpreted this EKG as follows: EKG interpretation date: 06/02/23 EKG interpretation time: 20:23 Interpretation: svt hr [address] or t wave abnormalities qrs 78 qtc 351 Other EKG comments: Chest X-Ray 06/02/23 20:22 IMPRESSION: No acute infiltrate. EKG 2: I personally reviewed and interpreted this EKG as follows: EKG interpretation date: 06/02/23 EKG interpretation time: 20:36 Interpretation: nsr hr [address] or t wave abnormalities qrs 80 qtc 410 Other EKG comments: Chest X-Ray 06/02/23 20:22 IMPRESSION: No acute infiltrate. Discharge Plan Discharge Patient Disposition: Home Clinical Impression: Supraventricular tachycardia Condition: Stable Prescriptions: No Action aspirin 81 mg tablet,delayed release (DR/EC) 162 mg PO DAILY@0630 multivitamin Tablet 1 tab PO DAILY@0630 amlodipine 2.5 mg tablet 2.5 mg PO DAILY Qty: 30 0RF Paxlovid 150 mg x 2- 100 mg tablet See Rx Instructions .ROUTE .COMPLEX Qty: 6 0RF Rx Instructions: take TWO 150 mg tablets of nirmatrelvir with ONE 100 mg tablet of ritonavir twice daily for 5 days Discharge Orders: Discharge ED (Routine); Ordered 06/02/23 Ordered By: Magdalena Hayden Discharge Diet: Advance as tolerated Discharge Activity: Resume usual activity Patient Instructions: Supraventricular Tachycardia (ED) Coding Level of Care Code ED Publishing Director for Sarita Holman
[2023-06-02] MEDS: sodium chloride 0.9% 1,000 ML 999 ML IV (20:38)
--- NOTE | 2023-06-02 20:41 | PC.NURSE ---
Pt into room from triage at 2027. Pt currently unresponsive at time of arrival to room. Pt placed into bed from wheelchair by staff with clothes removed. MD at bedside at 2028. EKG performed at 2029 revealing SVT rate of 169 bpm. MD reviewed. Zoll pads placed at 2029. 18G LAC and 18G RH placed at 2029. Vitals at this time read: 135/99 BP; 171 HR. At 2030, vagal maneuvers attempted. Pt attempted to blow on syringe and bear down. No rhythm change, maneuvers unsuccessful. At 2034, 6 mg of adenosine administered through LAC IV by MD. At 2035, rhythm change noted to be ST of 102 BPM at 2035. Pt more alert at this time and reports feeling better. At 2035, 1 L NS bolus hung as ordered. Pt on the monitor at this time. Repeat EKG completed at 2038 and handed to MD. Will continue to monitor.
[2023-06-02 20:52] LABS: Basophils # 0.1 10^3/uL (0.0-0.1); Basophils % 0.4 %; Eosinophils # 0.3 10^3/uL (0.0-0.8); Hematocrit 39.5 % (36-47); Lymphocytes % 20.5 %; Mean Corpuscular HGB Conc 32.2 g/dL (30-55); Mean Corpuscular Hemoglobin 29.1 pg (27-33); Mean Corpuscular Volume 90.6 fl (85-98); Monocytes # 1.1 10^3/uL (0.2-0.9); Monocytes % 7.2 %; Neutrophils # 10.25 10^3/uL (1.8-7.7); Neutrophils % 69.5 %; Nucleated Red Blood Cells % 0 %; Platelet Count 326 10^3/cmm (157-399); Red Blood Count 4.36 10^6/uL (3.85-5.65); White Blood Count 14.76 10^3/uL (3.29-11.43)
[2023-06-02 20:56] LABS: Alanine Aminotransferase 16 U/L (0-33); Albumin Level 4.2 g/dL (3.5-5.2); Alkaline Phosphatase 68 U/L (35-105); Anion Gap 15.6 (5-19); Aspartate Amino Transferase 17 U/L (0-32); Blood Urea Nitrogen 15 mg/dL (8-23); Carbon Dioxide 23 mmol/L (22-29); Chloride 107 mmol/L (98-107); Globulin 2.6 g/dL (1.3-4.6); Glomerular Filtration Rate 55.8 mL/min (90-130); Glucose 133 mg/dL (65-115); Osmolality Calculated 295 mOsm/kg (285-295); Potassium 4.6 mmol/L (3.5-5.1); Sodium 141 mmol/L (136-145); Total Bilirubin 0.2 mg/dL (0.15-1.2); Total Protein 6.8 g/dL (6.6-8.7)
[2023-06-02 20:57] VITALS: BP 127/86; PULSE 89; RESP 16; O2SAT 98
[2023-06-02 21:24] VITALS: BP 127/86; PULSE 87; RESP 23; O2SAT 97
[2023-06-02 21:43] VITALS: BP 119/96; PULSE 90; RESP 25; O2SAT 97
--- NOTE | 2023-06-03 07:58 | DCPLANNER ---
Addendum entered by Torrie Acevedo 06/09/23 13:41: gardening manager received the following message from the [facility] regarding follow up appointment: Attempted to call pt, LVM Letter sent Scheduled for 07/01/23 at 9:[address] Grant Thank you! On 06/05/23 @ 09:41 Maliha Gustafson Wrote To [facility] [place] Front Office Attempted to call patient, lvm. On 06/04/23 @ 12:52 Maliha Gustafson Wrote To [facility] Front Office Attempted to call patient, lvm. Patient has a follow up appointment scheduled for Thursday, July 01, 2023 at 9:[address] Grant at [facility]. Original Note: gardening manager had massage to schedule a follow up appointment for patient with cardiology. gardening manager sent patients information to the front office staff at [facility]. Patients information will be printed and reviewed. Clinic will call patient with appointment information.
== END 2023-06-02 21:50 | disposition home or self-care (01) ==
PROVIDERS: Emergency Provider Emergency Medicine
DX: I47.1 Supraventricular tachycardia (principal); Z79.82 Long term (current) use of aspirin
CPT/HCPCS: 71045; 80053; 85025; 93005; 96361; 96374; 99285; J0153; J7030

== ENCOUNTER 2024-10-10 16:21 | Inpatient (IN) | payer MEDICARE, SELFPAY ==
[2024-10-10] VITALS (7 sets, daily range): BP systolic 115–162; BP diastolic 57–98; PULSE 83–97; RESP 16–22; TEMP 36.7; O2SAT 90–96; BMI 27.4
--- NOTE | 2024-10-10 16:26 | XRR_ITS ---
PROCEDURE INFORMATION: Exam: XR Chest Exam date and time: 10/10/2024 4:29 PM Age: 64 years old Clinical indication: Cough and dyspnea; Additional info: Dyspnea/cough TECHNIQUE: Imaging protocol: Radiologic exam of the chest. Views: 1 view. COMPARISON: CR XR chest 1V portable [id number] 06/02/2023 8:41 PM FINDINGS: Lungs: No focal consolidation. Left basilar hazy opacities compatible with atelectasis or developing infection in the proper clinical setting. Pleural spaces: No evidence of pneumothorax. Small left-sided pleural effusion. Heart/Mediastinum: Cardiomediastinal silhouette is within normal limits. Bones/joints: No evidence of acute osseous abnormality. XR/XR chest 1V portable [id number] IMPRESSION: 1. Small left-sided pleural effusion. 2. Left basilar hazy opacities compatible with atelectasis or developing infection in the proper clinical setting.
[2024-10-10 16:39] LABS: Basophils # 0.1 10^3/uL (0.0-0.1); Basophils % 0.4 %; Eosinophils # 0.2 10^3/uL (0.0-0.8); Eosinophils % 0.9 %; Hematocrit 40.6 % (36-47); Lymphocytes # 2.7 10^3/uL (0.8-4.8); Mean Corpuscular HGB Conc 32.8 g/dL (30-55); Mean Corpuscular Hemoglobin 28.7 pg (27-33); Mean Corpuscular Volume 87.5 fl (85-98); Mean Platelet Volume 10.9 fL (7.4-10.4); Monocytes # 1.8 10^3/uL (0.2-0.9); Monocytes % 10.1 %; Neutrophils # 12.94 10^3/uL (1.8-7.7); Neutrophils % 73.1 %; Nucleated Red Blood Cells % 0 %; Platelet Count 352 10^3/cmm (157-399); Red Blood Count 4.64 10^6/uL (3.85-5.65); Red Cell Distribution Width 14.6 % (12.1-15.1); White Blood Count 17.69 10^3/uL (3.29-11.43)
--- NOTE | 2024-10-10 16:46 | ED_ITS ---
Documented by User: Jimbo De Los Santos DO 10/12/24 09:25 HPI - Chest Pain 2 General: Chief Complaint: ER Hold Stated Complaint: chest pain Time Seen by Provider: 10/10/24 16:26 History of Present Illness: 64-year-old female presents emergency ro om with complaint of chest discomfort. Arrived via EMS. They have been called because of chest discomfort and rapid heart rate. She was treated with adenosine in the field and converted. She received 6 and 12 mg doses. On arrival she still has mild chest discomfort. 64-year-old female with a history of SVT who presents emergency room with chest pain. Apparently she had an episode of SVT in the ambulance that was converted prior to arrival. Chest pain had improved initially but has returned. Her care was transitioned to az at shift change awaiting final workup. Associated symptoms: Reports palpitations; Deny abdominal pain, dyspnea or fever(s) Related Data Home Medications Medication Instructions Recorded Confirmed multivitamin 1 tab PO DAILY@30 08/17/20 10/10/24 aspirin 81 mg tablet,delayed 162 mg PO DAILY@30 11/16/20 10/10/24 release mecobalamin (vitamin B12) 1,000 1,000 mcg PO DAILY 10/10/24 10/10/24 mcg chewable tablet (B12 Active) Allergies Allergy/AdvReac Type Severity Reaction Status Date / Time No Known Allergies Allergy Verified 07/01/23 08:04 Review of Systems 2 Const: Denies: fever(s) or chills Card: Reports: chest pain, palpitations, irregular heart rhythm and dyspnea on exertion Resp: Denies: dyspnea GI: Denies: abdominal pain : Denies: dysuria, urinary frequency or urinary urgency Musc: Denies: neck pain or back pain Skin/Breast: Denies: rash PFSH ED 2 PFSH: Medical History No pertinent past medical history Family History Other Diabetes Hypertension Psychiatric illness Denies family history of CAD (coronary artery disease) Bleeding disorder Family history of premature coronary artery disease Stroke Social History Substance/Drug Use: never Physical Exam 2 Const: COMMON NORMALS: no acute distress GENERAL APPEARANCE: cooperative and comfortable ORIENTATION/CONSCIOUSNESS: Yes awake, Yes oriented to person, Yes oriented to place and Yes oriented to time HENMT: COMMON NORMALS: normocephalic, atraumatic and hearing grossly normal bilaterally HEAD & SCALP: normocephalic and atraumatic Resp: COMMON NORMALS: normal respiratory effort, No retractions, No use of accessory muscles and clear to auscultation bilaterally AUSCULTATION: clear to auscultation bilaterally Cardio: COMMON NORMALS: regular rate, regular rhythm and No murmurs present (Cardio) RATE: regular rate RHYTHM: regular rhythm GI: COMMON NORMALS: Soft to palpation and No hepatosplenomegaly present A USCULTATION: Yes normoactive bowel sounds PALPATION: Yes Soft to palpation, No Tenderness to palpation present (GI), No Guarding due to palpation present (GI) and Yes No hepatosplenomegaly present Extremity: COMMON NORMALS: normal to inspection, capillary refill normal, no clubbing, cyanosis or edema, no calf tenderness and no pedal edema Neuro: SENSORIUM/ORIENTATION: Yes oriented to person, Yes oriented to place and Yes oriented to time Skin: COMMON NORMALS: no rashes or lesions noted GENERAL SKIN EXAM: no rashes or lesions noted Course 2 Vital Signs: Vital signs: Vital Signs Temperature 98.4 F 10/12/24 08:00 Pulse Rate 82 10/12/24 08:00 Respiratory Rate 20 H 10/12/24 08:00 Blood Pressure 179/95 10/12/24 08:00 Pulse Oximetry 92 10/12/24 08:00 Oxygen Delivery Me thod Room Air 10/12/24 08:00 MDM - Chest Pain Medical Decision Making Care signed out to Dr. Sadler at change of shift. See final notes for diagnosis and disposition. Differential diagnosis for patient with chest pain includes but is not limited to and based on the above HPI, review of systems and physical exam: Pneumonia. unstable angina. angina. Acute coronary syndrome / ID. Pulmonary embolism. Costochondritis / musculoskeletal. Pleurisy. Pericarditis. Esophageal spasm. Pancreatis. Cholecystitis. Orders placed to evaluate differential diagnosis based on the above differential, HPI and physical exam Chest x-ray: There was concern for pleural effusion and possible pneumonia. Given her tachycardia and her chest pain a CTA was ordered. This was reviewed and interpreted by myself the emergency room physician. I also reviewed the radiology report. CTA of the chest showed no acute process. This was reviewed and interpreted by myself the emergency room physician. I also reviewed the radiology report. Lab Review: Laboratory results were reviewed and interpreted by myself the emergency room physician. Initial troponin was elevated at 121 and the second troponin came down to about 116. This is well above her baseline in the past. She also has some leukocytosis with white count 17,000. No renal failure. I reviewed the patient's medical record. Reexamination: Patient remained stable. No increased work of breathing. No altered mental status. No focal motor deficits. However patient says her chest pain is returning. Consultation: I spoke with Dr. Collins who is on-call for the hospitalist service who agrees to admission. Assessment and plan: Chest pain Elevated troponin SVT -I discussed the patient with the hospitalist on-call who is admitting the patient. - Discussed findings and plan with patient. Answered any questions. - All laboratory values were reviewed and interpreted personally by myself, the ER physician - All imaging was reviewed and interpreted personally by myself, the ER physician. - Evaluation and treatment of this problem were appropriate in the emergency setting Lab Data 10/12/24 02:55 10/12/24 02:55 Radiology Impressions Chest X-Ray 10/10/24 16:26 IMPRESSION: 1. Small left-sided pleural effusion. 2. Left basilar hazy opacities compatible with atelectasis or developing infection in the proper clinical setting. Chest CTA 10/10/24 20:09 IMPRESSION: 1. No evidence of central PE or acute aortic abnormality. There is eccentric hypodensity within a right upper lobe apical segmental/subsegmental branch, which may be secondary to respiratory motion. Subacute PE in this region would be difficult to exclude. 2. No evidence of pneumonia. Laboratory Results WBC 17.69 10^3/uL (3.29-11.43) H 10/10/24 15:50 RBC 4.64 10^6/uL (3.85-5.65) 10/10/24 15:50 Hgb 13.30 g/dL (11.27-16.99) 10/10/24 15:50 Hct 40.6 % (36-47) 10/10/24 15:50 MCV 87.5 fl (85-98) 10/10/24 15:50 MCH 28.7 pg (27-33) 10/10/24 15:50 MCHC 32.8 g/dL (30-55) 10/10/24 15:50 RDW 14.6 % (12.1-15.1) 10/10/24 15:50 Plt Count 352 10^3/cmm (157-399) 10/10/24 15:50 MPV 10.9 fL (7.4-10.4) H 10/10/24 15:50 Neut % (Auto) 73.1 % 10/10/24 15:50 Lymph % (Auto) 15.0 % 10/10/24 15:50 [place] % (Auto) 10.1 % 10/10/24 15:50 Eos % (Auto) 0.9 % 10/10/24 15:50 Baso % (Auto) 0.4 % 10/10/24 15:50 Neut # (Auto) 12.94 10^3/uL (1.8-7.7) H 10/10/24 15:50 Lymph # (Auto) 2.7 10^3/uL (0.8-4.8) 10/10/24 15:50 [place] # (Auto) 1.8 10^3/uL (0.2-0.9) H 10/10/24 15:50 Eos # (Auto) 0.2 10^3/uL (0.0-0.8) 10/10/24 15:50 Baso # (Auto) 0.1 10^3/uL (0.0-0.1) 10/10/24 15:50 Nucleated RBC % (auto) 0 % 10/10/24 15:50 Nucleated RBCs # 0.0 /100WBC 10/10/24 15:50 Sodium 136 mmol/L (136-145) 10/10/24 15:50 Potassium 4.8 mmol/L (3.5-5.1) 10/10/24 15:50 Chloride 99 mmol/L (98-107) 10/10/24 15:50 Carbon Dioxide 25 mmol/L (22-29) 10/10/24 15:50 Anion Gap 16.8 (5-19) 10/10/24 15:50 BUN 20 mg/dL (8-23) 10/10/24 15:50 Creatinine 1.0 mg/dL (0.5-0.9) H 10/10/24 15:50 GFR Calculation 55.6 mL/min (90-130) L 10/10/24 15:50 Glucose 126 mg/dL (65-115) H 10/10/24 15:50 Estimat Average Glucose 126 10/10/24 15:55 Hemoglobin A1c 6.0 % (4.0-6.0) 10/10/24 15:55 Calculated Osmolality 286 mOsm/kg (285-295) 10/10/24 15:50 Calcium 9.8 mg/dL (8.5-10.5) 10/10/24 15:50 Total Bilirubin 0.5 mg/dL (0.15-1.2) 10/10/24 15:50 AST 25 U/L (0-32) 10/10/24 15:50 ALT 30 U/L (0-33) 10/10/24 15:50 Alkaline Phosphatase 70 U/L (35-105) 10/10/24 15:50 Troponin T Baseline 121 ng/L (0-10) H* 10/10/24 18:06 Troponin T 120 Minute 116.5 ng/L (0-10) H 10/10/24 19:53 Delta Troponin T -4.5 ABS# (0-10) L 10/10/24 19:53 Total Protein 7.8 g/dL (6.6-8.7) 10/10/24 15:50 Albumin 4.3 g/dL (3.5-5.2) 10/10/24 15:50 Globulin 3.5 g/dL (1.3-4.6) 10/10/24 15:50 Vitamin B12 1154 pg/mL (232-1245) 10/10/24 18:06 TSH 0.61 uIU/mL (0.27-4.20) 10/10/24 18:06 Adenovirus (PCR) Not detected (NOT DETECT) 10/10/24 18:11 C. pneumoniae DNA (PCR) Not detected (NOT DETECT) 10/10/24 18:11 Coronavirus 229E (PCR) Not detected (NOT DETECT) 10/10/24 18:11 Human Metapneumovir PCR Not detected (NOT DETECT) 10/10/24 18:11 Influenza A (H1) PCR Not detected (NOT DETECT) 10/10/24 18:11 Influ A (H1/09) PCR Not detected (NOT DETECT) 10/10/24 18:11 Influenza A (H3) PCR Not detected (NOT DETECT) 10/10/24 18:11 Influenza Type A (PCR) Not detected (NOT DETECT) 10/10/24 18:11 Influenza Type B (PCR) Not detected (NOT DETECT) 10/10/24 18:11 M. pneumoniae (PCR) Not detected (NOT DETECT) 10/10/24 18:11 Parainfluenza 1 (PCR) Not detected (NOT DETECT) 10/10/24 18:11 Parainfluenza 2 (PCR) Not detected (NOT DETECT) 10/10/24 18:11 Parainfluenza 3 (PCR) Not detected (NOT DETECT) 10/10/24 18:11 Parainfluenza 4 (PCR) Not detected (NOT DETECT) 10/10/24 18:11 RSV Type A (PCR) Not detected (NOT DETECT) 10/10/24 18:11 RSV Type B (PCR) Not detected (NOT DETECT) 10/10/24 18:11 Entero/Rhino (PCR) Not detected (NOT DETECT) 10/10/24 18:11 SARS-CoV-2 (PCR) Not detected (NOT DETECT) 10/10/24 18:11 Discharge Plan Discharge Patient Disposition: Admitted As Inpatient Admit Provider: Mayito Collins Clinical Impression: Elevated troponin, Supraventricular tachycardia Chest pain Qualifiers: Chest pain type: precordial pain Qualified Code(s): R07.2 - Precordial pain Condition: Stable Coding Level of Care Code ED Studio Owner for Chg Fwd Documented by User: Dee Sadler MD 10/10/24 22:40 HPI - Chest Pain 2 General: Chief Complaint: ER Hold Stated Complaint: chest pain Time Seen by Provider: 10/10/24 16:26 History of Present Illness: 64-year-old female with a history of SVT who presents emergency room with chest pain. Apparently she had an episode of SVT in the ambulance that was converted prior to arrival. Chest pain had improved initially but has returned. Her care was transitioned to az at shift change awaiting final workup. Related Data Home Medications Medication Instructions Recorded Confirmed multivitamin 1 tab PO DAILY@0630 08/17/20 10/10/24 aspirin 81 mg tablet,delayed 162 mg PO DAILY@0630 11/16/20 10/10/24 release mecobalamin (vitamin B12) 1,000 1,000 mcg PO DAILY 10/10/24 10/10/24 mcg chewable tablet (B12 Active) Allergies Allergy/AdvReac Type Severity Reaction Status Date / Time No Known Allergies Allergy Verified 07/01/23 08:04 Review of Systems 2 Narrative: Constitutional symptoms: Negative except as documented in HPI. Skin symptoms: Negative except as documented in HPI. Eye symptoms: Negative except as documented in HPI. ENMT symptoms: Negative except as documented in HPI. Respiratory symptoms: Negative except as documented in HPI. Cardiovascular symptoms: Negative except as documented in HPI. Gastrointestinal symptoms: Negative except as documented in HPI. Genitourinary symptoms: Negative except as documented in HPI. Musculoskeletal symptoms: Negative except as documented in HPI. Neurologic symptoms: Negative except as documented in HPI. Psychiatric symptoms: Negative except as documented in HPI. Endocrine symptoms: Negative except as documented in HPI. PFSH ED 2 PFSH: Medical History No pertinent past medical history Family History Other Diabetes Hypertension Psychiatric illness Denies family history of CAD (coronary artery disease) Bleeding disorder Family history of premature coronary artery disease Stroke Social History Substance/Drug Use: never Physical Exam 2 Narrative: EXAM NARRATIVE: General: Alert, no acute distress. Skin: Warm, dry. Head: Normocephalic, atraumatic. Neck: Supple, trachea midline. Eye: Extraocular movements are intact. Ears, nose, mouth and throat: mucosa moist. Cardiovascular: Regular, Normal peripheral perfusion. Respiratory: Lungs are clear to auscultation, respirations are non-labored, breath sounds are equal, Symmetrical chest wall expansion. Gastrointestinal: Soft, Nontender, Non distended Musculoskeletal: Normal ROM, no deformity. Neurological: Alert and oriented, No focal neurological deficit observed. Psychiatric: Cooperative, appropriate mood & affect. Course 2 Vital Signs: Vital signs: Vital Signs Temperature 98.4 F 10/12/24 08:00 Pulse Rate 82 10/12/24 08:00 Respiratory Rate 20 H 10/12/24 08:00 Blood Pressure 179/95 10/12/24 08:00 Pulse Oximetry 92 10/12/24 08:00 Oxygen Delivery Me thod Room Air 10/12/24 08:00 MDM - Chest Pain Medical Decision Making Differential diagnosis for patient with chest pain includes but is not limited to and based on the above HPI, review of systems and physical exam: Pneumonia. unstable angina. angina. Acute coronary syndrome / ID. Pulmonary embolism. Costochondritis / musculoskeletal. Pleurisy. Pericarditis. Esophageal spasm. Pancreatis. Cholecystitis. Orders placed to evaluate differential diagnosis based on the above differential, HPI and physical exam Chest x-ray: There was concern for pleural effusion and possible pneumonia. Given her tachycardia and her chest pain a CTA was ordered. This was reviewed and interpreted by myself the emergency room physician. I also reviewed the radiology report. CTA of the chest showed no acute process. This was reviewed and interpreted by myself the emergency room physician. I also reviewed the radiology report. Lab Review: Laboratory results were reviewed and interpreted by myself the emergency room physician. Initial troponin was elevated at 121 and the second troponin came down to about 116. This is well above her baseline in the past. She also has some leukocytosis with white count 17,000. No renal failure. I reviewed the patient's medical record. Reexamination: Patient remained stable. No increased work of breathing. No altered mental status. No focal motor deficits. However patient says her chest pain is returning. Consultation: I spoke with Dr. Collins who is on-call for the hospitalist service who agrees to admission. Assessment and plan: Chest pain Elevated troponin SVT -I discussed the patient with the hospitalist on-call who is admitting the patient. - Discussed findings and plan with patient. Answered any questions. - All laboratory values were reviewed and interpreted personally by myself, the ER physician - All imaging was reviewed and interpreted personally by myself, the ER physician. - Evaluation and treatment of this problem were appropriate in the emergency setting Lab Data 10/12/24 02:55 10/12/24 02:55 Radiology Impressions Chest X-Ray 10/10/24 16:26 IMPRESSION: 1. Small left-sided pleural effusion. 2. Left basilar hazy opacities compatible with atelectasis or developing infection in the proper clinical setting. Chest CTA 10/10/24 20:09 IMPRESSION: 1. No evidence of central PE or acute aortic abnormality. There is eccentric hypodensity within a right upper lobe apical segmental/subsegmental branch, which may be secondary to respiratory motion. Subacute PE in this region would be difficult to exclude. 2. No evidence of pneumonia. Laboratory Results WBC 17.69 10^3/uL (3.29-11.43) H 10/10/24 15:50 RBC 4.64 10^6/uL (3.85-5.65) 10/10/24 15:50 Hgb 13.30 g/dL (11.27-16.99) 10/10/24 15:50 Hct 40.6 % (36-47) 10/10/24 15:50 MCV 87.5 fl (85-98) 10/10/24 15:50 MCH 28.7 pg (27-33) 10/10/24 15:50 MCHC 32.8 g/dL (30-55) 10/10/24 15:50 RDW 14.6 % (12.1-15.1) 10/10/24 15:50 Plt Count 352 10^3/cmm (157-399) 10/10/24 15:50 MPV 10.9 fL (7.4-10.4) H 10/10/24 15:50 Neut % (Auto) 73.1 % 10/10/24 15:50 Lymph % (Auto) 15.0 % 10/10/24 15:50 [place] % (Auto) 10.1 % 10/10/24 15:50 Eos % (Auto) 0.9 % 10/10/24 15:50 Baso % (Auto) 0.4 % 10/10/24 15:50 Neut # (Auto) 12.94 10^3/uL (1.8-7.7) H 10/10/24 15:50 Lymph # (Auto) 2.7 10^3/uL (0.8-4.8) 10/10/24 15:50 [place] # (Auto) 1.8 10^3/uL (0.2-0.9) H 10/10/24 15:50 Eos # (Auto) 0.2 10^3/uL (0.0-0.8) 10/10/24 15:50 Baso # (Auto) 0.1 10^3/uL (0.0-0.1) 10/10/24 15:50 Nucleated RBC % (auto) 0 % 10/10/24 15:50 Nucleated RBCs # 0.0 /100WBC 10/10/24 15:50 Sodium 136 mmol/L (136-145) 10/10/24 15:50 Potassium 4.8 mmol/L (3.5-5.1) 10/10/24 15:50 Chloride 99 mmol/L (98-107) 10/10/24 15:50 Carbon Dioxide 25 mmol/L (22-29) 10/10/24 15:50 Anion Gap 16.8 (5-19) 10/10/24 15:50 BUN 20 mg/dL (8-23) 10/10/24 15:50 Creatinine 1.0 mg/dL (0.5-0.9) H 10/10/24 15:50 GFR Calculation 55.6 mL/min (90-130) L 10/10/24 15:50 Glucose 126 mg/dL (65-115) H 10/10/24 15:50 Estimat Average Glucose 126 10/10/24 15:55 Hemoglobin A1c 6.0 % (4.0-6.0) 10/10/24 15:55 Calculated Osmolality 286 mOsm/kg (285-295) 10/10/24 15:50 Calcium 9.8 mg/dL (8.5-10.5) 10/10/24 15:50 Total Bilirubin 0.5 mg/dL (0.15-1.2) 10/10/24 15:50 AST 25 U/L (0-32) 10/10/24 15:50 ALT 30 U/L (0-33) 10/10/24 15:50 Alkaline Phosphatase 70 U/L (35-105) 10/10/24 15:50 Troponin T Baseline 121 ng/L (0-10) H* 10/10/24 18:06 Troponin T 120 Minute 116.5 ng/L (0-10) H 10/10/24 19:53 Delta Troponin T -4.5 ABS# (0-10) L 10/10/24 19:53 Total Protein 7.8 g/dL (6.6-8.7) 10/10/24 15:50 Albumin 4.3 g/dL (3.5-5.2) 10/10/24 15:50 Globulin 3.5 g/dL (1.3-4.6) 10/10/24 15:50 Vitamin B12 1154 pg/mL (232-1245) 10/10/24 18:06 TSH 0.61 uIU/mL (0.27-4.20) 10/10/24 18:06 Adenovirus (PCR) Not detected (NOT DETECT) 10/10/24 18:11 C. pneumoniae DNA (PCR) Not detected (NOT DETECT) 10/10/24 18:11 Coronavirus 229E (PCR) Not detected (NOT DETECT) 10/10/24 18:11 Human Metapneumovir PCR Not detected (NOT DETECT) 10/10/24 18:11 Influenza A (H1) PCR Not detected (NOT DETECT) 10/10/24 18:11 Influ A (H1/09) PCR Not detected (NOT DETECT) 10/10/24 18:11 Influenza A (H3) PCR Not detected (NOT DETECT) 10/10/24 18:11 Influenza Type A (PCR) Not detected (NOT DETECT) 10/10/24 18:11 Influenza Type B (PCR) Not detected (NOT DETECT) 10/10/24 18:11 M. pneumoniae (PCR) Not detected (NOT DETECT) 10/10/24 18:11 Parainfluenza 1 (PCR) Not detected (NOT DETECT) 10/10/24 18:11 Parainfluenza 2 (PCR) Not detected (NOT DETECT) 10/10/24 18:11 Parainfluenza 3 (PCR) Not detected (NOT DETECT) 10/10/24 18:11 Parainfluenza 4 (PCR) Not detected (NOT DETECT) 10/10/24 18:11 RSV Type A (PCR) Not detected (NOT DETECT) 10/10/24 18:11 RSV Type B (PCR) Not detected (NOT DETECT) 10/10/24 18:11 Entero/Rhino (PCR) Not detected (NOT DETECT) 10/10/24 18:11 SARS-CoV-2 (PCR) Not detected (NOT DETECT) 10/10/24 18:11 All radiology interpretation(s) finalized by discharge Discharge Plan Discharge Patient Disposition: Admitted As Inpatient Admit Provider: Mayito Collins Clinical Impression: Elevated troponin, Supraventricular tachycardia Chest pain Qualifiers: Chest pain type: precordial pain Qualified Code(s): R07.2 - Precordial pain Condition: Stable Coding Level of Care Code ED Studio Owner for Sarita Holman
[2024-10-10 16:58] LABS: Alanine Aminotransferase 30 U/L (0-33); Albumin Level 4.3 g/dL (3.5-5.2); Alkaline Phosphatase 70 U/L (35-105); Anion Gap 16.8 (5-19); Aspartate Amino Transferase 25 U/L (0-32); Blood Urea Nitrogen 20 mg/dL (8-23); Calcium 9.8 mg/dL (8.5-10.5); Carbon Dioxide 25 mmol/L (22-29); Chloride 99 mmol/L (98-107); Globulin 3.5 g/dL (1.3-4.6); Glomerular Filtration Rate 55.6 mL/min (90-130); Glucose 126 mg/dL (65-115); Osmolality Calculated 286 mOsm/kg (285-295); Potassium 4.8 mmol/L (3.5-5.1); Sodium 136 mmol/L (136-145); Total Bilirubin 0.5 mg/dL (0.15-1.2); Total Protein 7.8 g/dL (6.6-8.7)
--- NOTE | 2024-10-10 17:53 | ECG_ITS ---
[facility] Date: [facility]24[facility]10[facility]10 Pat Name: Mile Alonzo Department: Room: Gender: Female Orthopedic Physician Assistant: : 1960 Requested By: Jimbo Thompson Order Number: [id number] Ori MD: Cliff Cross M.D. Measurements Intervals [place] Rate: 96 P: 70 [place]: 153 QRS: 67 QRSD: 81 T: 65 QT: 350 QTc: 444 Interpretive Statements SINUS RHYTHM POSSIBLE RIGHT VENTRICULAR CONDUCTION DELAY [RSR (QR) IN V1/V2] Compared to ECG 06/02/2023 20:36:35 Myocardial infarct finding no longer present Electronically Signed On 10-10-2024 19:26:08 THEATER PROJECTIONIST by Cliff Cross M.D. [id number]
[2024-10-10 18:36] LABS: Troponin(5th) Baseline 121 ng/L (0-10)
--- NOTE | 2024-10-10 19:58 | ECG_ITS ---
[facility] Test Date: 2024-10-10 Pat Name: Mile Alonzo Department: Room: Gender: Female Potline Monitor: : 1960 Requested By: Jimbo Thompson Order Number: [id number] Ori MD: Zuhair Orellana M.D. Measurements Intervals [place] Rate: 94 P: 85 CT: 145 QRS: 69 QRSD: 90 T: 78 QT: 354 QTc: 444 Interpretive Statements SINUS RHYTHM POSSIBLE RIGHT VENTRICULAR CONDUCTION DELAY [RSR (QR) IN V1/V2] Compared to ECG 10/10/2024 16:36:05 No significant changes Electronically Signed On 10-11-2024 21:26:44 BEHAVIORAL HEALTH AIDE by Zuhair Orellana M.D. [id number]
--- NOTE | 2024-10-10 20:09 | CTR_ITS ---
PROCEDURE INFORMATION: Exam: CTA Chest With Contrast Exam date and time: 10/10/2024 8:31 PM Age: 64 years old Clinical indication: Pain; Chest pressure; Additional info: Hypoxemia, tachycardia TECHNIQUE: Imaging protocol: Computed tomographic angiography of the chest with contrast. Exam focused on the arteries. 3D rendering (Not supervised by radiologist): MIP and/or 3D reconstructed images were created by the technologist. Radiation optimization: All CT scans at this facility use at least one of these dose optimization techniques: automated exposure control; mA and/or kV adjustment per patient size (includes targeted exams where dose is matched to clinical indication); or iterative reconstruction. Contrast material: OMNI 350; Contrast volume: 100 ml; Contrast route: INTRAVENOUS (IV); COMPARISON: CR XR chest 1V portable [id number] 10/10/2024 4:29 PM RADIATION DOSE METRICS: Total DLP (mGy-cm): 371.98 FINDINGS: Pulmonary arteries: Evaluation for pulmonary thromboembolism is limited beyond the segmental level due to respiratory motion. No evidence of central PE. There is eccentric hypodensity within a right upper lobe apical segmental/subsegmental branch, which may be secondary to respiratory motion (for example, image 148 of series 6). Subacute PE in this region would be difficult to exclude. Aorta: No evidence of aneurysmal dilatation or dissection of the thoracic aorta. Thyroid: Grossly unremarkable. Lungs: No focal consolidation. No evidence of pneumonia. There is subsegmental atelectasis and mosaic attenuation in both lungs secondary to the expiratory phase of respiration. Pleural spaces: No evidence of pleural effusion. No pneumothorax. Heart: No cardiomegaly. No pericardial effusion. Mediastinal space: No evidence of mediastinal mass, fluid collection or hematoma.Small hiatal hernia with the GE junction above the diaphragm. Lymph nodes: No mediastinal or hilar adenopathy. Bones/joints: No evidence of acute fracture or aggressive osseous lesion. Soft tissues: No evidence of fluid collection or hematoma in the superficial soft tissues. Other findings: No evidence of acute abnormality in the upper abdomen. CT/CT angio chest PE protcl [id number] IMPRESSION: 1. No evidence of central PE or acute aortic abnormality. There is eccentric hypodensity within a right upper lobe apical segmental/subsegmental branch, which may be secondary to respiratory motion. Subacute PE in this region would be difficult to exclude. 2. No evidence of pneumonia.
[2024-10-10 20:15] LABS: Troponin 5 2HR Delta -4.5 ABS# (0-10)
[2024-10-10 20:16] LABS: Troponin 5 2HR 116.5 ng/L (0-10)
[2024-10-10 20:19] LABS: Adenovirus Not Detected (NOT DETECT); Chlamydia Pneumoniae Not Detected (NOT DETECT); Coronavirus 229E,HKU1,NL63,OC4 Not Detected (NOT DETECT); Human Metapneumovirus Not Detected (NOT DETECT); Human Rhinovirus/Enterovirus Not Detected (NOT DETECT); Influenza A Not Detected (NOT DETECT); Influenza A H1 Not Detected (NOT DETECT); Influenza A H1-2009 Not Detected (NOT DETECT); Influenza A H3 Not Detected (NOT DETECT); Influenza B Not Detected (NOT DETECT); Mycoplasma Pneumoniae Not Detected (NOT DETECT); Parainfluenza Virus Type 1 Not Detected (NOT DETECT); Parainfluenza Virus Type 2 Not Detected (NOT DETECT); Parainfluenza Virus Type 3 Not Detected (NOT DETECT); Parainfluenza Virus Type 4 Not Detected (NOT DETECT); Respiratory Syncytial Virus A Not Detected (NOT DETECT); Respiratory Syncytial Virus B Not Detected (NOT DETECT); SARS-COV-2 Not Detected (NOT DETECT)
[2024-10-10] MEDS: iohexol 350 mg/mL 500 mL Btl (per mL) IV (20:38)
--- NOTE | 2024-10-10 21:15 | P.HP_ITS ---
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 No nausea, vomiting or diaphoresis EMS gave her adenosine for SVT heart rate was around 170s At the time of evaluation she is in sinus rhythm heart rate in 90s hemodynamically stable I have requested ER physician to start ACS protocol Patient had received metoprolol Requested B12, TSH, Review of Systems 2 Const: Denies: fever(s) Eyes: Denies: change in vision ENMT: Denies: throat pain Card: Reports: chest pain Resp: Reports: dyspnea GI: Denies: abdominal pain Medications/Allergies Home Medications Medication Instructions Recorded Confirmed Last Taken Type multivitamin 1 tab PO DAILY@0630 08/17/20 10/10/24 10/09/24 History aspirin 81 mg tablet,delayed 162 mg PO DAILY@0630 11/16/20 10/10/24 10/10/24 History release mecobalamin (vitamin B12) 1,000 1,000 mcg PO DAILY 10/10/24 10/10/24 10/09/24 History mcg chewable tablet (B12 Active) Allergies Allergy/AdvReac Type Severity Reaction Status Date / Time No Known Allergies Allergy Verified 07/01/23 08:04 PFSH Acute 2 PFSH: Medical History No pertinent past medical history Family History Other Diabetes Hypertension Psychiatric illness Denies family history of CAD (coronary artery disease) Bleeding disorder Family history of premature coronary artery disease Stroke Social History Substance/Drug Use: never Vitals/I&O/Wt Last Vital Signs Temp 98.1 F 10/10/24 16:24 Pulse 96 10/10/24 20:09 Resp 18 10/10/24 20:09 BP 162/98 10/10/24 20:09 Pulse Ox 96 10/10/24 20:09 O2 Del Method Room Air 10/10/24 20:09 Weight last 48 hrs Weight 72.575 kg Physical Exam 2 Narrative: Awake and alert Complaining of active chest pain GCS 15 Nonfocal neuroexam Euvolemic Complaining of pain on taking deep breath No signs of edema No signs of heart failure Currently in sinus rhythm heart rate around 90s Abdomen soft Data 10/10/24 15:50 10/10/24 15:50 A&P Assessment and plan (1) Supraventricular tachycardia: (2) Exertional dyspnea: (3) Elevated troponin: Plan Non-STEMI Start ACS protocol Will request echo Patient will need coronary ischemic workup SVT Has been experiencing palpitation for last few months Start metoprolol check TSH B12 hemoglobin A1c, Patient drinks 2 cups of coffee in a day and couple of Monster drinks, counseled on cutting back on her caffeine intake 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 Orellana has been notified and consulted Patient will also need a new PCP She has not seen a doctor in a long time Currently hypertensive, will add lisinopril Attestations 2 Medical Necessity Statement*: Anticipating discharge within 48 hours Diagnoses Supraventricular tachycardia I47.1 Exertional dyspnea R06.00 Elevated troponin R77.8
--- NOTE | 2024-10-10 22:14 | USCV_ITS ---
Clinton Mile Age: 64 Gender: F : 1960 Exam Date: 10/10/2024 22:54 Ordering Phys: Mayito Collins MD Technologist: CARLA Exam Location: [facility] [place] Indication: SVT, chest pain BP: 155 / 88 HR: 74 Rhythm: Sinus Technical Quality: Adequate MEASUREMENTS (Male / Female) Normal Values 2D ECHO LV Diastolic Diameter PLAX 4.4 cm 4.2 - 5.9 / 3.9 - 5.3 cm IVS Diastolic Thickness 1.4 cm 0.6 - 1.0 / 0.6 - 0.9 cm IVS Systolic Thickness 1.8 cm LVPW Diastolic Thickness 1.2 cm 0.6 - 1.0 / 0.6 - 0.9 cm LVPW Systolic Thickness 1.8 cm LVOT Diameter 1.8 cm LV Ejection Fraction 2D Teich 69.4 % LV Ejection Fraction MOD 4C 55.0 % LV Ejection Fraction MOD 2C 61.1 % LV Ejection Fraction 2C AL 64.6 % LA Diameter 3.6 cm Aorta at Sinotubular Diameter 2.7 cm IVC Diameter 1.6 cm M-MODE LA Ao Ratio MM 1.3 AV Cusp Separation MM 2.2 cm DOPPLER AV Peak Velocity 113.0 cm/s LVOT Peak Velocity 85.0 cm/s AV Area Cont Eq vti 2.1 cm squared AV Area Cont Eq pk 1.9 cm squared MV Area PHT 3.9 cm squared Mitral E to A Ratio 1.4 TR Peak Velocity 214.0 cm/s TR Peak Gradient 18.3 mmHg TV Peak E Velocity 56.0 cm/s PV Peak Velocity 74.0 cm/s FINDINGS Left Ventricle Left ventricle is normal in size. LV systolic function is normal with EF of 55-60%. No regional wall motion abnormalities. Right Ventricle Normal in size and function Right Atrium Normal in size Left Atrium Normal in size Mitral Valve Structurally normal mitral valve. Mild mitral regurgitation Aortic Valve Structurally normal aortic valve. No significant stenosis or regurgitation. Tricuspid Valve Mild tricuspid regurgitation. Insufficient TR jet to calculate Pulmonic Valve Not well visualized Pericardium Normal Aorta Normal in size IVC Appears to be normal CONCLUSIONS LV systolic function is normal with EF of 55 to 60%. Mild mitral regurgitation Mild tricuspid regurgitation. Compared to prior echocardiogram from 2019, no significant changes are seen Zuhair Orellana MD (Electronically Signed) Final Date: 11 October 2024 09:31 S
[2024-10-10] MEDS: aspirin 81 mg Chew Tablet 324 MG PO (22:30)
[2024-10-10] MEDS: clopidogrel 300 mg Tablet PO (22:31)
[2024-10-10] MEDS: metoprolol tartrate 25 mg Tablet PO (22:32)
[2024-10-10] MEDS: enoxaparin 80 mg/0.8 mL Syringe 70 MG SUBCUT (22:32)
[2024-10-10 23:00] LABS: Estmated Average Glucose 126
[2024-10-10 23:36] LABS: Thyroid Stimulating Hormone 0.61 uIU/mL (0.27-4.20); Vitamin B12 1154 pg/mL (232-1245)
--- NOTE | 2024-10-10 23:53 | ECG_ITS ---
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 Measurements Intervals [place] Rate: 80 P: 68 IA: 132 QRS: 66 QRSD: 87 T: 69 QT: 384 QTc: 444 Interpretive Statements SINUS RHYTHM POSSIBLE RIGHT VENTRICULAR CONDUCTION DELAY [RSR (QR) IN V1/V2] Compared to ECG 10/10/2024 19:58:19 No significant changes Electronically Signed On 10-11-2024 21:22:46 DOGMAN/WOMAN by Zuhair Orellana M.D. [id number]
[2024-10-11] VITALS (92 sets, daily range): BP systolic 107–159; BP diastolic 64–109; PULSE 68–91; RESP 12–33; TEMP 37–37.2; O2SAT 83–100; BMI 36.1
[2024-10-11 00:48] LABS: Troponin 5 6HR Delta 3.3 ng/L (0-12)
[2024-10-11 00:52] LABS: Troponin 5 6HR 124.3 ng/L (0-10)
[2024-10-11 04:38] LABS: Basophils # 0.1 10^3/uL (0.0-0.1); Basophils % 0.4 %; Eosinophils # 0.1 10^3/uL (0.0-0.8); Eosinophils % 0.4 %; Lymphocytes # 2.8 10^3/uL (0.8-4.8); Lymphocytes % 21.4 %; Mean Corpuscular HGB Conc 33.5 g/dL (30-55); Mean Corpuscular Volume 86.5 fl (85-98); Mean Platelet Volume 10.2 fL (7.4-10.4); Monocytes # 1.7 10^3/uL (0.2-0.9); Monocytes % 12.7 %; Neutrophils # 8.56 10^3/uL (1.8-7.7); Neutrophils % 64.8 %; Nucleated Red Blood Cells % 0 %; Platelet Count 285 10^3/cmm (157-399); Red Blood Count 3.93 10^6/uL (3.85-5.65); Red Cell Distribution Width 14.4 % (12.1-15.1); White Blood Count 13.21 10^3/uL (3.29-11.43)
[2024-10-11 05:00] LABS: Blood Urea Nitrogen 13 mg/dL (8-23); C Reactive Protein 67.2 mg/L (0.0-4.9); Calcium 8.6 mg/dL (8.5-10.5); Carbon Dioxide 24 mmol/L (22-29); Chloride 102 mmol/L (98-107); Creatinine Clr Calc Pharmacy 60.8478; Glomerular Filtration Rate 62.8 mL/min (90-130); Glucose 111 mg/dL (65-115); Magnesium 2.1 mg/dL (1.7-2.3); Osmolality Calculated 287 mOsm/kg (285-295); Sodium 138 mmol/L (136-145)
--- NOTE | 2024-10-11 07:51 | USCV_ITS ---
Mile Alonzo Age: 64 Gender: F : 1960 Exam Date: 10/11/2024 08:30 Ordering Phys: Delfino Rain MD Technologist: USR Exam Location: [facility] Indication: swelling PROCEDURES: Venous duplex imaging was performed in bilateral lower extremities. The following venous structures were evaluated: common femoral vein, profunda vein, proximal portion of the greater saphenous vein, superficial femoral vein, and the popliteal vein. In addition, the posterior tibial and peroneal trunk were evaluated. FINDINGS: No evidence of DVT seen in any vessel visualized at this time. Normal 2-D Doppler and augmentation and compressibility throughout the lower extremity venous structures. Additional imaging through the proximal calf veins also reveals no thrombus. Limited evaluation of the greater saphenous vein is patent with no thrombus. CONCLUSIONS No DVT bilateral lower extremities. Dr. Charito Pérez DO (Electronically Signed) Final Date: 12 October 2024 06:56 S
--- NOTE | 2024-10-11 09:23 | ECG_ITS ---
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 Interpretive Statements LEXISCAN SESTAMIBI STRESS TEST Procedure: At the baseline, the blood pressure was 159/90 mmHg with a heart rate of 71 bpm. The electrocardiogram showed normal sinus rhythm, normal axis with normal ST and T's. The Lexiscan was infused over a period of 20 seconds. A total of 0.4 mg of Lexiscan was infused. The stress phase was continued for a total of 5 minutes. Heart rate was at the end of stress phase was 83 bpm and a blood pressure of 150/68 mmHg. The EKG at the peak infusion revealed normal sinus rhythm with no significant ST-T wave changes. Sestamibi was injected 20 seconds after the Lexiscan infusion. Blood pressure at the end of recovery phase was 148/81 mmHg with a heart rate of 83 bpm. Conclusion: 1. Normal EKG response to Lexiscan infusion 2. No Lexiscan induced chest pain or cardiac arrhythmia. 3. Normal blood pressure and heart rate response. 4. Sestamibi/sestamibi perfusion scan pending; see separate report. Electronically Signed On 10-12-2024 08:20:40 HOUSEKEEPING ROOM INSPECTOR by Zuhair Orellana M.D. [id number]
--- NOTE | 2024-10-11 09:29 | P.CONIM_ITS ---
<Statement entered by Zuhair Orellana M.D - 10/11/24 22:01> Patient was evaluated and cared for in conjunction with an advanced practice practitioner. I personally examined the patient and reviewed the chart and all pertinent data including imaging, telemetry, and laboratory results. I discussed the patient in detail with the advanced practice practitioner. Please see their note for complete progress note, results and agreed upon plan of care for the patient. Briefly, patient has history of SVT, presented with chest pain and palpitations. Was found to be in SVT per EMS and heart rates in 170-180s. Converted back to NSR. Still has on and off chest discomfort. Worse with breathing. Troponin was elevated and trended down on serial testing. GENERAL: Patient is alert and oriented HEART: Regular S1 and S2 LUNGS: Clear to auscultations EXTREMITIES: Lower extremities with 1+ edema ASSESSMENT AND PLAN 1) Chest pain 2) Troponin elevation 3) SVT Patient has presented with SVT and chest pain. Still has some dicomfort but mostly pleuritic and atypical. However given troponin elevation, we will proceed with stress test to rule out ischemia NPO past midnight. [facility] can consider referral to EP for SVT ablation Echo shows normal LV systolic function Thank you for involving us with care of this patient. We will continue to follow. Please call with questions. Providers/Reason For Consult 2 Consulting Physician/Specialty*: Dr Orellana, cardiology Reason for Consult*: NSTEMI, chest pain Requesting Physician: Dr Collins Attending Physician: Delfino Rain MD Primary Care Provider: none History of Present Illness History of Present Illness Mile Alonzo is a 64 year old female presenting with chest pain and palpitations. She reported an episode yesterday while in her vehicle, leading her to the emergency department with symptoms of severe right sided chest pain and difficulty breathing. These symptoms have been occurring sporadically since around the time the COVID-19 pandemic started in 2019. The pain was predominantly on the right side, radiating to the center, described as tight and compressed, similar to broken ribs, severely affecting her ability to breathe deeply. Previously, episodes were shorter, lasting four to five hours, but recently have lasted longer, leading to increased concern. The patient experienced similar episodes on [place] ? and [place], described by rapid heart rate subsiding after a few hours. No medication was taken for rhythm control, but she has been monitoring her diet. She was treated yesterday by EMS for an SVT episode with a heart rate in the 170s with adenosine. Her baseline troponin level was elevated at 121 with negative delta. She denies taking routine medication for her condition due to concerns about side effects. She does not note any worsening in the chest pain with palpation or with ambulating to the bathroom. Inspiration does seem to make the pain more intense. She also notes a gradual increase in blood pressure previous to this episode, becoming uncontrolled lately. When her heart rate was very rapid, she noted shortness of breath, nausea and diaphoresis. 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 Review of Systems 2 Narrative: - Cardiovascular: Reports palpitations, chest pain worsened by deep breaths. - Respiratory: Reports difficulty in jaime athing deeply. - Gastrointestinal: Reports nausea and e mesis. - Constitutional: Reports episodes of fe eling faint and fatigued. Const: Denies: fever(s), chills, change in weight, fatigue or diaphoresis Eyes: Denies: change in vision ENMT: Denies: epistaxis Card: Reports: chest pain and palpitations; Denies: irregular heart rhythm, edema, syncope, pre-syncope, dyspnea on exertion, orthopnea or leg pain with exertion Resp: Denies: dyspnea, productive cough or wheezing GI: Denies: nausea, vomiting, hematemesis, hematochezia or melena : Denies: hematuria Musc: Denies: extremity swelling Nick/Lymph: Denies: easy bruising or easy bleeding Medications/Allergies Home Medications Medication Instructions Recorded Confirmed Last Taken Type multivitamin 1 tab PO DAILY@62908/17/20 10/10/24 10/09/24 History aspirin 81 mg tablet,delayed 162 mg PO DAILY@30 11/16/20 10/10/24 10/10/24 History release mecobalamin (vitamin B12) 1,000 1,000 mcg PO DAILY 10/10/24 10/10/24 10/09/24 History mcg chewable tablet (B12 Active) Allergies Allergy/AdvReac Type Severity Reaction Status Date / Time No Known Allergies Allergy Verified 07/01/23 08:04 Current Medications Generic Name Dose Route Start Last Admin Trade Name Freq PRN Reason Stop Dose Admin Enoxaparin Sodium 70 mg 10/10/24 21:45 10/10/24 22:32 Enoxaparin 80 Mg/0.8 Ml Syringe SUBCUT 70 mg Q12H NOEL Administration PFSH Acute 2 PFSH: Medical History No pertinent past medical history Family History Other Diabetes Hypertension Psychiatric illness Denies family history of CAD (coronary artery disease) Bleeding disorder Family history of premature coronary artery disease Stroke Social History Substance/Drug Use: never Vitals/I&O/Wt Last Vital Signs Temp 98.1 F 10/10/24 16:24 Pulse 78 10/11/24 06:40 Resp 19 H 10/11/24 06:40 BP 130/87 10/11/24 06:40 Pulse Ox 93 10/11/24 06:40 O2 Del Method Room Air 10/11/24 04:36 Weight last 48 hrs Weight 160 lb Physical Exam 2 Const: COMMON NORMALS: no acute distress and patient oriented x3 GENERAL APPEARANCE: cooperative and comfortable ORIENTATION/CONSCIOUSNESS: Yes awake, Yes oriented to person, Yes oriented to place and Yes oriented to time Chest: COMMONS NORMALS: normal inspection of the chest and normal palpation of entire chest wall CHEST: Yes Symmetrical chest wall rise Resp: COMMON NORMALS: normal respiratory effort, No retractions, No use of accessory muscles and clear to auscultation bilaterally EFFORT & INSPECTION: Yes symmetric chest movement AUSCULTATION: clear to auscultation bilaterally Cardio: COMMON NORMALS: regular rate, regular rhythm, S1 normal heart sound present, S2 normal heart sound present, No gallops present (Cardio), No clicks present (Cardio), No murmurs present (Cardio) and No rub (Cardio) RATE: r egular rate RHYTHM: regular rhythm HEART SOUNDS: S1 normal heart sound present and S2 normal heart sound present PERIPHERAL PULSES: radial pulses present Extremity: COMMON NORMALS: no pedal edema Neuro: COMMON NORMALS: patient oriented x3 and moves all extremities S ENSORIUM/ORIENTATION: Yes oriented to person, Yes oriented to place and Yes oriented to time Data 10/11/24 04:33 10/11/24 04:33 Other Labs: - Labs: Baseline troponin level elevated at 121. - Tests: CTA negative for Pulmonary Embolism, TSH normal, CMP elevated at 67, WBC elevated at 13,000. A&P Assessment and plan (1) Chest pain: Qualifiers: Chest pain type: precordial pain Qualified Code(s): R07.2 - Precordial pain (2) Elevated troponin: (3) Supraventricular tachycardia: Plan She does have atypical chest pain, however for further evaluation, a stress test is warranted to rule out myocardial ischemia. Will plan for that today. EKG today shows sinus rhythm, heart rate controlled at rest. Echocardiogram has been ordered as well. Further plan based on results. Coding Level of Care Code Acute Code for g Fwd Diagnoses Precordial pain R07.2 Chest pain type: precordial pain Elevated troponin R77.8 Supraventricular tachycardia I47.1
[2024-10-11] MEDS: metoprolol tartrate 50 mg Tablet PO ×2 (10:01→21:53)
[2024-10-11] MEDS: atorvastatin 40 mg Tablet 80 MG PO (10:01)
[2024-10-11] MEDS: aspirin 81 mg EC Tablet PO (10:01)
[2024-10-11] MEDS: sennosides-docusate Tablet 1 TAB PO (10:01)
[2024-10-11] MEDS: clopidogrel 75 mg Tablet PO (10:01)
[2024-10-11] MEDS: enoxaparin 80 mg/0.8 mL Syringe 70 MG SUBCUT ×2 (10:02→21:53)
--- NOTE | 2024-10-11 13:57 | P.PN_ITS ---
Subjective 2 Subjective: Patient was seen this morning, she denies any current chest pain, no nausea, no vomiting, no abdominal pain, no dysuria, hematuria, discussed plans on echocardiogram and stress testing tomorrow, she is agreeable, discussed leukocytosis Vitals/I&O/Wt Last Vital Signs Temp 98.1 F 10/10/24 16:24 Pulse 71 10/11/24 12:56 Resp 16 10/11/24 12:56 BP 137/94 10/11/24 12:00 Pulse Ox 98 10/11/24 12:56 O2 Del Method Room Air 10/11/24 12:56 Weight last 48 hrs Weight 72.575 kg Physical Exam 2 Const: COMMON NORMALS: no acute distress and patient oriented x3 Resp: COMMON NORMALS: normal respiratory effort, No retractions, No use of accessory muscles and clear to auscultation bilaterally AUSCULTATION: clear to auscultation bilaterally Cardio: COMMON NORMALS: regular rate, regular rhythm, S1 normal heart sound present and S2 normal heart sound present RATE: regular rate RHYTHM: r egular rhythm HEART SOUNDS: S1 normal heart sound present and S2 normal heart sound present GI: COMMON NORMALS: Normal to inspection, nondistended, normoactive bowel sounds present and non-tender Extremity: COMMON NORMALS: no pedal edema Neuro: COMMON NORMALS: patient oriented x3 Psych: COMMON NORMALS: mental status grossly normal Data 10/11/24 04:33 10/11/24 04:33 A&P Assessment and plan (1) Supraventricular tachycardia: (2) Exertional dyspnea: (3) Elevated troponin: Plan NSTEMI Aspirin, statin, Plavix, beta-shayla On therapeutic Lovenox CONCLUSIONS LV systolic function is normal with EF of 55 to 60%. Mild mitral regurgitation Mild tricuspid regurgitation. Compared to prior echocardiogram from 2019, no significant changes are seen Currently chest pain-free N.p.o. midnight, cardiac stress test tomorrow SVT Has been experiencing palpitation for last few months Continue metoprolol Patient drinks 2 cups of coffee in a day and couple of Monster drinks, counseled on cutting back on her caffeine intake Leukocytosis, with elevated CRP, chest x-ray showing left basilar hazy opacity -Concern for developing pneumonia -Start Rocephin, azithromycin Full code N.p.o. after midnight Cardiology consulted Attestations 2 Medical Necessity Statement*: Patient requires hospitalization for NSTEMI, SVT, leukocytosis, inpatient greater than 2 midnights Diagnoses Supraventricular tachycardia I47.1 Exertional dyspnea R06.00 Elevated troponin R77.8
[2024-10-11] MEDS: AZITHROMYCIN ADD-Vantage 500 MG in 0.9% NaCl ADD-Vantage 250 ML 250 MG IV (15:47)
[2024-10-11] MEDS: cefTRIAXone 1,000 mg SDV 1000 MG IVP (15:48)
[2024-10-12 03:57] LABS: Basophils # 0.1 10^3/uL (0.0-0.1); Basophils % 0.7 %; Eosinophils # 0.3 10^3/uL (0.0-0.8); Eosinophils % 2.7 %; Hematocrit 37.9 % (36-47); Lymphocytes # 3.2 10^3/uL (0.8-4.8); Lymphocytes % 30.3 %; Mean Corpuscular HGB Conc 32.7 g/dL (30-55); Mean Corpuscular Hemoglobin 28.8 pg (27-33); Mean Corpuscular Volume 88.1 fl (85-98); Mean Platelet Volume 10.6 fL (7.4-10.4); Monocytes # 1.3 10^3/uL (0.2-0.9); Monocytes % 12.1 %; Neutrophils # 5.77 10^3/uL (1.8-7.7); Neutrophils % 53.9 %; Nucleated Red Blood Cells % 0 %; Platelet Count 307 10^3/cmm (157-399); Red Cell Distribution Width 14.2 % (12.1-15.1)
[2024-10-12 04:00] VITALS: BP 186/94; PULSE 79; RESP 19; TEMP 36.6; O2SAT 96
[2024-10-12 04:25] LABS: C Reactive Protein 85.5 mg/L (0.0-4.9)
[2024-10-12 04:27] LABS: Anion Gap 16.2 (5-19); Blood Urea Nitrogen 15 mg/dL (8-23); Calcium 8.9 mg/dL (8.5-10.5); Carbon Dioxide 24 mmol/L (22-29); Chloride 102 mmol/L (98-107); Creatinine Clr Calc Pharmacy 67.2917; Glomerular Filtration Rate 62.8 mL/min (90-130); Glucose 99 mg/dL (65-115); Osmolality Calculated 287 mOsm/kg (285-295); Potassium 4.2 mmol/L (3.5-5.1); Sodium 138 mmol/L (136-145)
--- NOTE | 2024-10-12 06:55 | PC.NURSE ---
Patient ordered for an exercise sestamibi stress test but the beta shayla was not stopped. Dr. Orellana notified and orders received to change test to a Lexiscan sestamibi stress test. This was explained tot he patient and she verbalized her understanding and wishes to proceed.
[2024-10-12] MEDS: regadenoson 0.4 Mg/5 ml Syringe IVP (07:09)
[2024-10-12 07:23] VITALS: BP 148/81; PULSE 83
[2024-10-12 08:00] VITALS: BP 179/95; PULSE 82; RESP 20; TEMP 36.9; O2SAT 92
[2024-10-12] MEDS: aspirin 81 mg EC Tablet PO (08:33)
[2024-10-12] MEDS: atorvastatin 40 mg Tablet 80 MG PO (08:33)
[2024-10-12] MEDS: sennosides-docusate Tablet 1 TAB PO (08:33)
[2024-10-12] MEDS: metoprolol tartrate 50 mg Tablet PO (08:33)
[2024-10-12] MEDS: clopidogrel 75 mg Tablet PO (08:34)
--- NOTE | 2024-10-12 09:27 | NMCV_ITS ---
NM pretty perf SPECT r/s* [id number] Mile Alonzo Age: 64 Gender: F : 1960 Exam Date: 10/12/2024 06:24 Ordering Phys: Lizzy Muñoz Technologist: ADELIA Weston Exam Location: [facility] Indications: cp STRESS TEST Please see separate stress test report in [facility] for full findings IMAGE PROTOCOL Rest/Stress 1 Lexiscan Day Radiopharmaceutical Dose (mCi) Administration Site Administered by Rest: Tc-99m 11 IV ADELIA Weston Sestamibi Stress:Tc-99m 32.9 IV ADELIA Nassar Sestamibi Rest: 12-Oct-2024 60 Discovery 630 Stress: 12-Oct-2024 30 Discovery 630 0.4mg Lexiscan. Images obtained in supine and prone position. SPECT RESULTS Technical Quality: Good Raw Data Analysis: Normal Image Corrections: No attenuation or motion correction applied Summed Stress Score: 4 Summed Rest Score: 3 Summed Difference Score: 1 PERFUSION FINDINGS There is reduced radiotracer uptake seen in apical lateral and inferolateral wall on resting images that improves with stress imaging. Prone imaging resolves this perfusion abnormality. This is consistent with attenuation artifact and left circumflex artery territory. No evidence of ischemia seen. FUNCTIONAL RESULTS (calculated via Gated SPECT) Stress Image LV EF (%): 74 Stress EDV (mL):76 TID: 1.4 Stress ESV (mL):20 FUNCTIONAL FINDINGS: There is normal left ventricular systolic function. IMPRESSIONS 1. Attenuation artifact is seen in left circumflex artery territory. No evidence of ischemia. 2. LV systolic function is normal. Zuhair Orellana MD (Electronically Signed) Final Date: 12 October 2024 08:15 S
[2024-10-12 10:00] VITALS: PULSE 71; RESP 18; O2SAT 95
--- NOTE | 2024-10-12 10:39 | P.PN_ITS ---
<Statement entered by Zuhair Orellana M.D - 10/13/24 09:29> Patient was evaluated and cared for in conjunction with an advanced practice practitioner. I personally examined the patient and reviewed the chart and all pertinent data including imaging, telemetry, and laboratory results. I discussed the patient in detail with the advanced practice practitioner. Please see their note for complete progress note, results and agreed upon plan of care for the patient. Patient is feeling well. no chest pain. GENERAL: Patient is alert and oriented HEART: Regular S1 and S2 LUNGS: Clear to auscultations EXTREMITIES: Lower extremities with 1+ edema ASSESSMENT AND PLAN 1) Chest pain 2) Troponin elevation 3) SVT Stress test did not reveal significant ischemia. Patient can be discharged home on metoprolol and aspirin. As outpatient if have more SVT episodes, will proceed with EP evaluation for ablation. Thank you for involving us with care of this patient. Please call with questions. Subjective 2 Subjective: She is feeling better this morning, no episodes of rapid heart rate overnight. Stress test does not show any ischemia, LV function normal. Will plan for discharge home today, with metoprolol succinate 25mg daily as blood pressure is intermittently elevated. Continue aspirin, atorvastatin- she has history of borderline hyperlipidemia. Vitals/I&O/Wt Last Vital Signs Temp 98.4 F 10/12/24 08:00 Pulse 82 10/12/24 08:00 Resp 20 H 10/12/24 08:00 BP 179/95 10/12/24 08:00 Pulse Ox 92 10/12/24 08:00 O2 Del Method Room Air 10/12/24 08:00 10/11/24 10/12/24 10/12/24 22:59 06:59 14:59 Intake Total 650 / 650 240 / 240 Balance 650 / 650 240 / 240 Weight last 48 hrs Weight 202 lb 13.204 oz Weight 203 lb 11.314 oz Weight 160 lb Physical Exam 2 Const: COMMON NORMALS: no acute distress and patient oriented x3 GENERAL APPEARANCE: cooperative and comfortable ORIENTATION/CONSCIOUSNESS: Yes awake, Yes oriented to person, Yes oriented to place and Yes oriented to time Chest: COMMONS NORMALS: normal inspection of the chest and normal palpation of entire chest wall CHEST: Yes Symmetrical chest wall rise Resp: COMMON NORMALS: normal respiratory effort, No retractions, No use of accessory muscles and clear to auscultation bilaterally EFFORT & INSPECTION: Yes symmetric chest movement AUSCULTATION: clear to auscultation bilaterally Cardio: COMMON NORMALS: regular rate, regular rhythm, S1 normal heart sound present, S2 normal heart sound present, No gallops present (Cardio), No clicks present (Cardio), No murmurs present (Cardio) and No rub (Cardio) RATE: r egular rate RHYTHM: regular rhythm HEART SOUNDS: S1 normal heart sound present and S2 normal heart sound present PERIPHERAL PULSES: radial pulses present Extremity: COMMON NORMALS: no pedal edema Neuro: COMMON NORMALS: patient oriented x3 and moves all extremities S ENSORIUM/ORIENTATION: Yes oriented to person, Yes oriented to place and Yes oriented to time Data 10/12/24 02:55 10/12/24 02:55 A&P Assessment and plan (1) Supraventricular tachycardia: (2) Elevated troponin: Plan Plan to discharge home today if hospitalist in agreement. May discontinue Plavix. Continue aspirin 81mg daily, switch metoprolol tartrate to succinate 25mg daily. Continue atorvastatin 80mg daily. Follow up in the cardiology clinic with the nurse practitioner in 10 days. She should keep a blood pressure log to bring to that appointment. Attestations 2 Medical Necessity Statement*: plan to discharge today Coding Level of Care Code Acute Code for [facility] Diagnoses Supraventricular tachycardia I47.1 Elevated troponin R77.8
--- NOTE | 2024-10-12 11:41 | PM.DCS ---
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 No nausea, vomiting or diaphoresis EMS gave her adenosine for SVT heart rate was around 170s At the time of evaluation she is in sinus rhythm heart rate in 90s hemodynamically stable I have requested ER physician to start ACS protocol Patient had received metoprolol Requested B12, TSH, This is a 64-year-old female who presents [facility] for chest palpitations, was found to have SVT, received adenosine in emergency room, converted to normal sinus rhythm, managed on metoprolol, overall clinically doing well with no recurrent episodes of SVT. Patient does report consuming 2 cups of caffeine and a Monster drink daily advised to abstain from caffeine and energy drink use. Patient was found to have NSTEMI during hospitalization, stress test low probability of coronary ischemia, cardiac echocardiogram no acute findings, no recurrent chest pain, discharged with close follow-up with cardiology as outpatient Patient was advised if she would have any recurrent chest pain to go to the emergency room She was also found to have pneumonia with leukocytosis during hospitalization, managed with IV antibiotics discharged on p.o. Augmentin Physical Exam Const: COMMON NORMALS: no acute distress and patient oriented x3 Resp: COMMON NORMALS: normal respiratory effort, No retractions, No use of accessory muscles and clear to auscultation bilaterally AUSCULTATION: clear to auscultation bilaterally Cardio: COMMON NORMALS: regular rate, regular rhythm, S1 normal heart sound present and S2 normal heart sound present RATE: regular rate RHYTHM: regular rhythm HEART SOUNDS: S1 normal heart sound present and S2 normal heart sound present GI: COMMON NORMALS: Normal to inspection, nondistended, normoactive bowel sounds present and non-tender Extremity: COMMON NORMALS: no pedal edema Neuro: COMMON NORMALS: patient oriented x3 Psych: COMMON NORMALS: mental status grossly normal Discharge Data Studies Completed and Pending Completed Studies During Hospitalization Category Date Time Status CT angio chest PE protcl [id number] Stat Cat Scan 10/10/24 20:09 Completed Cardiac Stress Test MIBI [Sestamibi Stress Test Request Exams 10/11/24 09:23 Completed ] Routine XR chest 1V portable [id number] Stat Exams 10/10/24 16:26 Completed NM pretty perf SPECT r/s* [id number] Routine Nuc Med 10/12/24 09:27 [place] [id number] Routine Ultrasound 10/11/24 07:51 Completed CV. echo complete* [id number] Routine Ultrasound 10/10/24 22:14 Completed Pending at discharge Category Date Time Status Basic Metabolic Panel AM LABS Lab 10/13/24 04:00 Ordered Basic Metabolic Panel AM LABS Lab 10/14/24 04:00 Ordered C Reactive Protein AM LABS Lab 10/13/24 04:00 Ordered C Reactive Protein AM LABS Lab 10/14/24 04:00 Ordered Complete Blood Count w/Auto AM LABS Lab 10/13/24 04:00 Ordered Complete Blood Count w/Auto AM LABS Lab 10/14/24 04:00 Ordered Drug Screen, Urine Routine Lab 10/10/24 22:14 Uncollected Urinalysis Stat Lab 10/11/24 13:58 Uncollected Radiology Impressions Chest X-Ray 10/10/24 16:26 IMPRESSION: 1. Small left-sided pleural effusion. 2. Left basilar hazy opacities compatible with atelectasis or developing infection in the proper clinical setting. Chest CTA 10/10/24 20:09 IMPRESSION: 1. No evidence of central PE or acute aortic abnormality. There is eccentric hypodensity within a right upper lobe apical segmental/subsegmental branch, which may be secondary to respiratory motion. Subacute PE in this region would be difficult to exclude. 2. No evidence of pneumonia. Laboratory Results WBC 10.70 10^3/uL (3.29-11.43) 10/12/24 02:55 RBC 4.30 10^6/uL (3.85-5.65) 10/12/24 02:55 Hgb 12.40 g/dL (11.27-16.99) 10/12/24 02:55 Hct 37.9 % (36-47) 10/12/24 02:55 MCV 88.1 fl (85-98) 10/12/24 02:55 MCH 28.8 pg (27-33) 10/12/24 02:55 MCHC 32.7 g/dL (30-55) 10/12/24 02:55 RDW 14.2 % (12.1-15.1) 10/12/24 02:55 Plt Count 307 10^3/cmm (157-399) 10/12/24 02:55 MPV 10.6 fL (7.4-10.4) H 10/12/24 02:55 Neut % (Auto) 53.9 % 10/12/24 02:55 Lymph % (Auto) 30.3 % 10/12/24 02:55 Overton % (Auto) 12.1 % 10/12/24 02:55 Eos % (Auto) 2.7 % 10/12/24 02:55 Baso % (Auto) 0.7 % 10/12/24 02:55 Neut # (Auto) 5.77 10^3/uL (1.8-7.7) 10/12/24 02:55 Lymph # (Auto) 3.2 10^3/uL (0.8-4.8) 10/12/24 02:55 Overton # (Auto) 1.3 10^3/uL (0.2-0.9) H 10/12/24 02:55 Eos # (Auto) 0.3 10^3/uL (0.0-0.8) 10/12/24 02:55 Baso # (Auto) 0.1 10^3/uL (0.0-0.1) 10/12/24 02:55 Nucleated RBC % (auto) 0 % 10/12/24 02:55 Nucleated RBCs # 0.0 /100WBC 10/12/24 02:55 Sodium 138 mmol/L (136-145) 10/12/24 02:55 Potassium 4.2 mmol/L (3.5-5.1) 10/12/24 02:55 Chloride 102 mmol/L (98-107) 10/12/24 02:55 Carbon Dioxide 24 mmol/L (22-29) 10/12/24 02:55 Anion Gap 16.2 (5-19) 10/12/24 02:55 BUN 15 mg/dL (8-23) 10/12/24 02:55 Creatinine 0.9 mg/dL (0.5-0.9) 10/12/24 02:55 GFR Calculation 62.8 mL/min (90-130) L 10/12/24 02:55 Glucose 99 mg/dL (65-115) 10/12/24 02:55 Estimat Average Glucose 126 10/10/24 15:55 Hemoglobin A1c 6.0 % (4.0-6.0) 10/10/24 15:55 Calculated Osmolality 287 mOsm/kg (285-295) 10/12/24 02:55 Calcium 8.9 mg/dL (8.5-10.5) 10/12/24 02:55 Magnesium 2.1 mg/dL (1.7-2.3) 10/11/24 04:33 Total Bilirubin 0.5 mg/dL (0.15-1.2) 10/10/24 15:50 AST 25 U/L (0-32) 10/10/24 15:50 ALT 30 U/L (0-33) 10/10/24 15:50 Alkaline Phosphatase 70 U/L (35-105) 10/10/24 15:50 Troponin T Baseline 121 ng/L (0-10) H* 10/10/24 18:06 Troponin T 120 Minute 116.5 ng/L (0-10) H 10/10/24 19:53 Delta Troponin T -4.5 ABS# (0-10) L 10/10/24 19:53 Troponin T Hi Sens 6Hr 124.3 ng/L (0-10) H 10/11/24 00:16 Troponin T Hi Sens 6Hr Delta 3.3 ng/L (0-12) 10/11/24 00:16 C-Reactive Protein 85.5 mg/L (0.0-4.9) H 10/12/24 02:55 Total Protein 7.8 g/dL (6.6-8.7) 10/10/24 15:50 Albumin 4.3 g/dL (3.5-5.2) 10/10/24 15:50 Globulin 3.5 g/dL (1.3-4.6) 10/10/24 15:50 Vitamin B12 1154 pg/mL (232-1245) 10/10/24 18:06 TSH 0.61 uIU/mL (0.27-4.20) 10/10/24 18:06 Adenovirus (PCR) Not detected (NOT DETECT) 10/10/24 18:11 C. pneumoniae DNA (PCR) Not detected (NOT DETECT) 10/10/24 18:11 Coronavirus 229E (PCR) Not detected (NOT DETECT) 10/10/24 18:11 Human Metapneumovir PCR Not detected (NOT DETECT) 10/10/24 18:11 Influenza A (H1) PCR Not detected (NOT DETECT) 10/10/24 18:11 Influ A (H1/09) PCR Not detected (NOT DETECT) 10/10/24 18:11 Influenza A (H3) PCR Not detected (NOT DETECT) 10/10/24 18:11 Influenza Type A (PCR) Not detected (NOT DETECT) 10/10/24 18:11 Influenza Type B (PCR) Not detected (NOT DETECT) 10/10/24 18:11 M. pneumoniae (PCR) Not detected (NOT DETECT) 10/10/24 18:11 Parainfluenza 1 (PCR) Not detected (NOT DETECT) 10/10/24 18:11 Parainfluenza 2 (PCR) Not detected (NOT DETECT) 10/10/24 18:11 Parainfluenza 3 (PCR) Not detected (NOT DETECT) 10/10/24 18:11 Parainfluenza 4 (PCR) Not detected (NOT DETECT) 10/10/24 18:11 RSV Type A (PCR) Not detected (NOT DETECT) 10/10/24 18:11 RSV Type B (PCR) Not detected (NOT DETECT) 10/10/24 18:11 Entero/Rhino (PCR) Not detected (NOT DETECT) 10/10/24 18:11 SARS-CoV-2 (PCR) Not detected (NOT DETECT) 10/10/24 18:11 Vitals Last Vital Signs Temp 98.4 F 10/12/24 08:00 Pulse 71 10/12/24 10:00 Resp 18 10/12/24 10:00 BP 179/95 10/12/24 08:00 Pulse Ox 95 10/12/24 10:00 O2 Del Method Room Air 10/12/24 10:00 Discharge Plan Discharge Patient Disposition: Home Condition: Stable Prescriptions: New atorvastatin 40 mg Tablet 80 mg PO DAILY 30 Days Qty: 30 0RF sennosides-docusate sodium [Stool Softener-Laxative] 8.6-50 mg Tablet 1 tab PO DAILY 30 Days Qty: 30 0RF metoprolol succinate 25 mg Tablet Extended Release 24 Hr 25 mg PO DAILY 30 Days Qty: 30 0RF amoxicillin-pot clavulanate 875-125 mg tablet 1 tab PO BID 5 Days Qty: 10 0RF Continued multivitamin Tablet 1 tab PO DAILY@0630 mecobalamin (vitamin B12) [B12 Active] 1,000 mcg Tablet,Chewable 1,000 mcg PO DAILY Changed aspirin 81 mg tablet,delayed release (DR/EC) 81 mg PO DAILY@0630 30 Days Qty: 30 0RF Discharge Orders: Discharge Order (Routine); Ordered 10/12/24 Ordered By: Delfino Rain Referrals: Zuhair Orellana M.D [Physician] - 10/25/24 1:30 pm Angel Luis Iqbal MD [Physician] - (We have notified your physician's clinic of the need for a follow-up appointment to be scheduled. If you have not heard from them within the next 2 business days, please call them directly. ) Discharge Diet: Cardiac Discharge Activity: Resume usual activity Patient Instructions: Metoprolol (By mouth), Amoxicillin/Clavulanate Potassium (By mouth), Laxative, Stool Softeners (By mouth), Atorvastatin (By mouth) (Lipitor, Atorvaliq), Chest Pain (DC), Dyspnea (DC), Chest Pain Stoplight, Opioid Safety Activity Restrictions/Additional Instructions: -Please stop caffeine use -If any recurrent chest pain or palpitations go to emergency room Stand Alone Forms: Work/School Release Discharge Attestations Time Spent in Discharge Care*: greater than 30 min Quality Metrics Clinical Quality Measures [ No reported AMI, CVA or VTE this stay] Coding Level of Care Code 03895 Total time (in minutes) for Discharge: 45 Diagnoses Supraventricular tachycardia I47.1 Elevated troponin R77.8
[2024-10-12 12:00] VITALS: BP 138/87; PULSE 70; RESP 20; TEMP 36.9; O2SAT 93
[2024-10-12 16:55] VITALS: BP 130/87; PULSE 102; RESP 21; TEMP 36.9; O2SAT 95
== END 2024-10-12 17:30 | disposition home or self-care (01) | DRG 308 ==
LOC: ER 20:43 → ER IP 21:40 → CSU 10-12 06:59
PROVIDERS: Family Medicine; Internal Medicine; Admitting Provider Family Medicine; Emergency Provider Emergency Medicine; Visit Provider Family Medicine
DX: I47.10 Supraventricular tachycardia, unspecified (principal); J18.9 Pneumonia, unspecified organism; R79.89 Other specified abnormal findings of blood chemistry; E78.5 Hyperlipidemia, unspecified; Z79.82 Long term (current) use of aspirin; Z83.3 Family history of diabetes mellitus; Z82.49 Family history of ischemic heart disease and other diseases of the circulatory system
CPT/HCPCS: 36415; 71045; 71275; 78452; 80048; 80053; 82607; 83036; 83735; 84443; 84484; 85025; 86140; 87486; 87581; 87633; 93005; 93017; 93306; 93970; 96365; 96372; 96375; 99285; A9500; G0378; J0456; J0696; J1650; J2785; J7050